=== PATIENT | male | born 1965 | race Caucasian/White ===

== ENCOUNTER 2023-09-05 12:55 | Outpatient (REF) | payer OTHER, SELFPAY ==
--- NOTE | ~2023-09-05 | XR_ITS ---
EXAMINATION: XR LUMBOSACRAL SPINE WITH OBLIQUES CLINICAL INFORMATION: Dorsalgia COMPARISON: None available. TECHNIQUE: AP, both oblique, and lateral views of the lumbar spine. Lateral view of the lumbosacral junction. FINDINGS: Patient is status post posterior fusion at the level of L3-S1 with parallel screws and vertical rods and status post laminectomies. Disc spacers are identified to the level of L3-L4, L4-L5 and L5-S1. The marker of spacers at the level of L4-L5 is mildly anteriorly located and it is not clear, if this position is stable due to inability to compare to the previous studies. There are extensive changes of degenerative spondylosis with multiple marginal bridging osteophytes, more prominent on the right at the level of L1-L2. No evidence of acute fractures or subluxations. Soft tissues are unremarkable. XR/XR lumbar spine 4V min IMPRESSION: Unclear stability of L4-L5 intervertebral disc spacer position, due to inability to compare to the previous images. If previous images well become available, an addendum will follow.
== END 2023-09-05 12:56 | disposition home or self-care (01) ==
LOC: HO.HOSX 12:55
PROVIDERS: PCP Internal Medicine; Visit Provider Physician Assistant
DX: M54.9 Dorsalgia, unspecified (principal); T81.89XA Other complications of procedures, not elsewhere classified, initial encounter; Z98.1 Arthrodesis status; Y75.3 Surgical instruments, materials and neurological devices (including sutures) associated with adverse incidents; Y92.9 Unspecified place or not applicable
CPT/HCPCS: 72110; 99212

== ENCOUNTER 2023-09-05 12:55 | Outpatient (AMB) | payer OTHER, SELFPAY ==
--- NOTE | 2023-09-05 13:01 | HO.SPINEOV ---
Intake Visit Reasons: back pain Intake Note: Mr. Zhu is here today c/o low back pain. Employment Counselor Required: No Allergies No Known Allergies Allergy (Verified 09/05/23 13:04) Assessment & Plan Assessment & Plan (1) Back pain: Code(s): M54.9 - Dorsalgia, unspecified Category: Medical Plan Mr Zhu is a patient known to us from our previous practice [facility]. He underwent a minimally invasive trans Kambin lumbar interbody fusion from L3-S1 in June 2021. He did okay after surgery, he has had back pain on and off but there is a intense left-sided low back pain that has been troubling him for over year. Specifically, any time he coughs, he will feel an intense sharp stabbing pain in the left side of his low back. It is so intense it will leave him shaking and at times incapacitated trial have to go sit down. It is particularly bad at night he is lying on his left side. That is when it is most intense and if he coughs at night it will be a big spasm into his back. It has gotten to the point now where he is only able to sleep on his right side and he is very scared of any kind of coughing. He does not have any pain radiating down the legs. I examined his back today in the area he shows me where he has the pain and discomfort appears to be on the left-sided stab incision on the upper end of the incision. It does radiate down along the length of the stab incision going toward the lower pole but does not go down into his SI joint. His motor examination is normal. I did x-rays on him today and these show no signs of instability. I reviewed a CT scan that was done at [facility] last year for back pain and this shows that he has evidence of fusion at the interbody cages. There does appear to be some halo around the left S1 screw. The Tulip head of the screw abuts right next to the iliac crest. I am wondering if there may be a little bit of movement when he coughs with this Tulip head up against the iliac crest. I would like to run this by Dr. Lombardi and see if he has any other thoughts. I will get back to the patient once I have a chance to review the imaging with Dr. Lombardi. Total amount of time spent in this visit was 20 minutes in discussion of symptoms, CT scan, x-rays imaging results and subsequent plan of care Dharmesh Lombardi MD,PhD [facility] Orders: Orders XR lumbar spine 4V min Today M54.9 - Dorsalgia, unspecified Coding Level of Care Code Est Pt Level 3 (18700) Diagnoses Back pain M54.9
== END 2023-09-05 14:01 | disposition home or self-care (01) ==
LOC: HO.HNS 12:55
PROVIDERS: PCP Internal Medicine; Visit Provider Physician Assistant
DX: M54.9 Dorsalgia, unspecified (principal)
CPT/HCPCS: 99213

== ENCOUNTER 2023-11-04 15:28 | Outpatient (REF) | payer OTHER, SELFPAY | END 2023-11-04 15:29 | disposition home or self-care (01) | LOC: HO.LAB 15:28 | PROVIDERS: PCP Internal Medicine; Visit Provider Neurological Surgery | DX: Z13.89 Encounter for screening for other disorder (principal) ==

== ENCOUNTER → 2023-11-17 06:59 | Day surgery (SDC) | payer OTHER, SELFPAY ==
--- NOTE | 2023-11-03 | ECG_ITS ---
Test Reason : preop Blood Pressure : / mmHG Vent. Rate : 053 BPM Atrial Rate : 053 BPM P-R Int : 152 ms QRS Dur : 086 ms QT Int : 442 ms P-R-T Axes : 057 073 016 degrees QTc Int : 414 ms Sinus bradycardia Septal infarct , age undetermined Abnormal ECG No previous ECGs available Referred By: Janie Carmichael Electronically Signed By:BRADEN POWERS
[2023-11-03 12:28] VITALS: BP 143/89; PULSE 68; RESP 16; O2SAT 97; BMI 22.7
--- NOTE | 2023-11-03 13:03 | P.CONAN_ITS ---
HPI - Anesthesia Eval Consult details Narrative: 57yo M for Removal of Posterior instrumentation (Lumbar L3-S1), 11/17/23 Optimized per PCP eval +Utox with PAT No recent illness Activity only limited by back pain Occassional CP, relieved with time and drinking juice. Difficult for patient to qualify type, location, when... 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 PCP ordered PFT 07/2023 but not done. Also smokes marijuana daily (educated on abstaining preop). GERD: ppi daily ETOH: 2 nips most days, previously more (educated on slow decrease of ETOH intake preop) PMFSH Active Problems Active Problems: All Active Problems Back pain (Acute) Past Medical History Medical History (Updated 11/15/23 @ 09:26 by Kate Marie, PIERO) Alcohol liver damage Alcohol use disorder Dry cough Wears dentures Anxiety History of ETOH abuse Smoker SOB (shortness of breath) Scoliosis GERD (gastroesophageal reflux disease) Surgical History Surgical History (Updated 11/02/23 @ 12:11 by Kate Marie RN) Hx of arthroscopy of right knee Hx of shoulder surgery Hx of hand surgery History of surgery on lower extremity History of foot surgery (~2022) History of lumbar spinal fusion (~06/2021) Social History Social History (Updated 11/03/23 @ 12:55 by Kate Marie, PIERO) Housing Other:: trailer Are you a primary early breastfeeding care specialist to a significant other at home: No Do you presently have visiting nurse or other home services: No Patient Tobacco Use Status: Current everyday Tobacco user Tobacco use type: Cigarette Cigarette Packs Per Day: 1 Cigarettes Per Day: 20.0 Years Smoked: 40 Second Hand Smoke Exposure: No Substance Use Type: Marijuana Meds Allergies Allergy/AdvReac Type Severity Reaction Status Date / Time No Known Allergies Allergy Verified 11/02/23 12:14 Home Medications ?Medication ?Instructions ?Recorded ?Confirmed ?Last Taken ?Type gabapentin 400 mg capsule 400 mg PO TID 11/02/23 11/02/23 Unknown History melatonin 10 mg chewable tablet 10 mg PO BEDTIME 11/02/23 11/02/23 Unknown History pantoprazole 40 mg tablet,delayed 40 mg PO BEDTIME 11/02/23 11/02/23 Unknown History release albuterol sulfate 90 mcg/actuation 2 puff inhalation Q4H PRN Wheezing 11/15/23 11/15/23 Unknown History aerosol inhaler (Ventolin HFA) Exam Height,Weight and Vital Signs: Height 5 ft 7 in Weight 65.771 kg Last Vital Signs Pulse 68 11/03/23 12:28 Resp 16 11/03/23 12:28 BP 143/89 H 11/03/23 12:28 Pulse Ox 97 11/03/23 12:28 O2 Del Method Room Air 11/03/23 12:28 Pertinent Lab Results Pertinent Lab Results: Lab Results 11/03/23 11/03/23 11/04/23 Range/Units 14:00 14:05 15:42 WBC 6.0 (4.8-10.8) X10*3/uL RBC 4.24 L (4.60-5.80) X10*6/uL Hgb 15.6 (14.0-18.0) g/dl Hct 44.5 (42.0-52.0) % MCV 105.0 H (80.0-98.0) fL MCH 36.8 H (27.0-33.0) pg MCHC 35.1 (31.0-36.0) g/dl RDW 12.9 (11.0-16.0) % Plt Count 250 (160-400) X10*3/uL MPV 9.4 (9.4-12.4) fL Absolute Nucleated RBC 0.000 (0.0-0.012) X10*3/uL Nucleated RBC % (auto) 0.0 (0.0-0.2) /100WBC PT 10.7 L (11.1-13.3) SEC INR 0.9 (0.9-1.1) Sodium 143 140 (135-145) mmol/L Potassium 6.0 H* 4.5 D (3.3-5.1) mmol/L Chloride 108 105 (96-108) mmol/L Carbon Dioxide 27 28 (22-29) mmol/L Anion Gap 14 12 (12-20) BUN 12 (9-16) mg/dL Creatinine 0.87 (0.5-1.4) mg/dL Estim Creat Clear Calc 86.0 Estimated GFR > 60 Random Glucose 99 (60-115) mg/dL Calcium 10.3 H (8.4-10.2) mg/dL Total Bilirubin 0.2 (0.0-1.0) mg/dL AST 24 (5-37) U/L ALT 24 (0-40) U/L Alkaline Phosphatase 98 (39-117) U/L Total Protein 7.8 (6.5-8.0) g/dL Albumin 4.5 (3.5-5.0) g/dL Urine Opiates Screen Not Detected (Not Detect) Ur Buprenorphine Scrn Not Detected (Not Detect) ng/mL Ur Oxycodone Screen Not Detected (Not Detect) ng/mL Urine Methadone Screen Not Detected (Not Detect) ng/mL Urine Fentanyl Screen Not Detected (Not Detect) Ur Barbiturates Screen Not Detected (Not Detect) Ur Phencyclidine Scrn Not Detected (Not Detect) Ur Amphetamines Screen Not Detected (Not Detect) U Benzodiazepines Scrn Not Detected (Not Detect) Urine Cocaine Screen POSITIVE H (Not Detect) U Marijuana (THC) Screen POSITIVE H (Not Detect) Narrative Narrative: EKG 10/2023 Vent. Rate : 053 BPM Atrial Rate : 053 BPM P-R Int : 152 ms QRS Dur : 086 ms QT Int : 442 ms P-R-T Axes : 057 073 016 degrees QTc Int : 414 ms Sinus bradycardia Septal infarct , age undetermined Abnormal ECG No previous ECGs available Airway Mallampati Class: III TM Dist: >3cm Neck ROM: Full Denture: Upper Loose/Missing/Broken Teeth: Yes (No lower teeth) Heart: RRR Lungs: clear, dim bases Assessment and Plan Assessment Anesthesia Assessment: Anesthesia Plan Discussed, Smoking Cess. Discussed and PAT Visit
[2023-11-03 14:55] LABS: Hematocrit 44.5 % (42.0-52.0); Hemoglobin 15.6 g/dl (14.0-18.0); Mean Corpuscular HGB Conc 35.1 g/dl (31.0-36.0); Mean Corpuscular Hemoglobin 36.8 pg (27.0-33.0); Mean Platelet Volume 9.4 fL (9.4-12.4); Platelet Count 250 X10*3/uL (160-400); Red Blood Count 4.24 X10*6/uL (4.60-5.80); Red Cell Distribution Width 12.9 % (11.0-16.0)
[2023-11-03 15:00] LABS: INTERNATIONAL NORM RATIO 0.9 (0.9-1.1); Prothrombin Time 10.7 SEC (11.1-13.3)
[2023-11-03 15:05] LABS: Amphetamine Screen Urine Not Detected (Not Detect); Barbiturates, Urine Not Detected (Not Detect); Benzodiazepines Screen Urine Not Detected (Not Detect); Buprenorphine Scr Not Detected (Not Detect); Cannabinoid Screen Urine POSITIVE (Not Detect); Cocaine Screen Urine POSITIVE (Not Detect); Fentanyl, urine Not Detected (Not Detect); Methadone Screen, Urine Not Detected (Not Detect); Opiate Screen Urine Not Detected (Not Detect); Oxycodone Screen Urine Not Detected (Not Detect); Phencyclidine Screen Urine Not Detected (Not Detect)
[2023-11-03 16:03] LABS: Alanine Aminotransferase 24 U/L (0-40); Albumin Level 4.5 g/dL (3.5-5.0); Alkaline Phosphatase 98 U/L (39-117); Anion Gap 14 (12-20); Aspartate Amino Transferase 24 U/L (5-37); Bilirubin Total 0.2 mg/dL (0.0-1.0); Blood Urea Nitrogen 12 mg/dL (9-16); Calcium 10.3 mg/dL (8.4-10.2); Carbon Dioxide 27 mmol/L (22-29); Chloride 108 mmol/L (96-108); Estimated Glomerular Filt Rate > 60; Glucose Random 99 mg/dL (60-115); Sodium 143 mmol/L (135-145); Total Protein 7.8 g/dL (6.5-8.0)
[2023-11-04 16:20] LABS: Anion Gap 12 (12-20); Carbon Dioxide 28 mmol/L (22-29); Chloride 105 mmol/L (96-108); Potassium 4.5 mmol/L (3.3-5.1); Sodium 140 mmol/L (135-145)
--- NOTE | ~2023-11-17 | XR_ITS ---
EXAMINATION: XR CHEST CLINICAL INFORMATION: Smoker. COMPARISON: Chest radiograph report dated 12/29/2012. TECHNIQUE: 2 views of the chest were obtained. FINDINGS: The heart is normal in size. The lungs appear hyperinflated with flattening of the diaphragm and increased size of the retrosternal airspace, consistent with chronic obstructive pulmonary disease. There is no consolidation within either lung. The pleural spaces are clear. No pneumothorax. There are at least 5 chronic appearing right rib fractures and at least one chronic appearing left rib fracture. This fracture is new when compared with the prior chest radiograph. There is deformity of the right clavicle with 2 screws overlying the mid aspect of this bone. There are degenerative changes of the spine. XR/XR chest 2V IMPRESSION: There is no consolidation within either lung. Findings consistent with chronic obstructive pulmonary disease. Chronic bilateral rib fractures.
--- OUTSIDE RECORDS SUMMARY | 2023-11-17 07:01 | XMS_ITS | Continuity of Care Document ---
Author Organization [facility] ter Address [address] [place] [id number]- Care Team Providers Care Funeral Pre Arrangement Specialist Name Role Phone Not on Staff, PCP Primary Care Physician Unavail able Encounter [facility] [place] Date(s): 05/05/21 - 07/09/[address] [address]- Attending Physician: Fahad Cervantes MD Admitting Physician: Fahad Cervantes MD Allergies, Adverse Reactions, Alerts No Known Allergies Medications aspirin 325 mg oral delayed release tablet 325 mg, 1, tablet, By Mouth, Daily, # 14 tablet, Refills 0, Tot. Refills 0, Maintenance, 08/06/20 12:32:00 EDT, Route to Pharmacy Electronically, [facility], Partial fill upon patient request if the prescription is for a schedule II opio... Start Date: 08/06/20 Stop Date: 08/20/20 Status: Ordered folic acid 1 mg oral tablet 1 mg, 1, tablet, By Mouth, Daily, Refills 0, Maintenance, 08/06/20 12:32:00 EDT, Partial fill upon patient request if the prescription is for a schedule II opioid drug. Start Date: 08/06/20 Status: Ordered Multivitamin Tablet 1 tablet, By Mouth, Daily, 0 Refills, Maintenance, 08/06/20 12:32:00 EDT, Tablet, Partial fill uponpatient request if the prescription is for a schedule II opioid drug. Start Date: 08/06/20 Status: Ordered Neurontin 300 mg oral capsule 1 capsule = 300 mg, By Mouth, 2 times a day, Take 1 capsule before bedtime every evening for 1 week, then increase to 1 capsule twice daily., # 60 capsule, 0 Refills, Maintenance, 05/28/13 11:33:34, Capsule, 1 capsule By Mouth 2 times a day,Instr:Take... Start Date: 05/28/13 Status: Ordered Nicoderm C-Q Clear 14 mg/24 hr transdermal film, extended release 1 patch, Topically, Daily, # 30 patch, 0 Refills, Maintenance, 05/15/13 10:45:08, Patch Start Date: 05/15/13 Status: Ordered pantoprazole 40 mg oral delayed release tablet 1 tablet = 40 mg, By Mouth, Daily, # 30 tablet, 0 Refills, Maintenance, 08/05/20 9:41:00 EDT, EC Tablet Start Date: 08/05/20 Status: Ordered thiamine 100 mg oral tablet 100 mg, 1, tablet, By Mouth, 2 times a day, Refills 0, Maintenance, 08/06/20 12:33:00 EDT, Partial fill upon patient request if the prescription is for a schedule II opioid drug. 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
--- OUTSIDE RECORDS SUMMARY | 2023-11-17 07:01 | XMS_ITS | Continuity of Care Document ---
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(Discharge Diagnosis) - 11/29/21 Post-traumatic arthritis of left ankle(Discharge Diagnosis) - 11/29/21 Painful orthopaedic hardware(Discharge Diagnosis) - 11/29/21 Discharge Disposition: A-Transfer VNA/Home Health Attending Physician: Fahad Cervantes MD Admitting Physician: Fahad Cervantes MD Referring Physician: Fahad Cervantes MD Allergies, Adverse Reactions, Alerts No Known Allergies Immunizations Given and Recorded Vaccine Date Status Refusal Reason SARS-CoV-2 (COVID-19) mRNA-1273 vaccine 12/11/20 R ecorded SARS-CoV-2 (COVID-19) mRNA-1273 vaccine 10/30/20 R ecorded Medications acetaminophen 325 mg oral tablet 650 mg, By Mouth, Every 6 hours, # 60 tablet, Refills 0, Tot. Refills 0, Acute 12/06/21 10:56:00 EDT, 11/29/21 10:56:00 EDT, Route to Pharmacy Electronically, [facility], Partial fill upon patient request if the prescription is for a enrico... Start Date: 11/29/21 Stop Date: 12/06/21 Status: Ordered Acetaminophen Tablet 650 mg, Tablet, By Mouth, 11/29/21 9:00:00 EDT Start Date: 11/29/21 Stop Date: 11/29/21 Status: Completed aspirin 325 mg oral delayed release tablet 325 mg, 1, tablet, By Mouth, Daily, # 30 tablet, Refills 0, Tot. Refills 0, Maintenance, 11/29/21 10:57:00 EDT, Route to Pharmacy Electronically, [facility], Partial fill upon patient request if the prescription is for a schedule II opio... Start Date: 11/29/21 Status: Ordered Bactrim DS 800 mg-160 mg oral tablet 1 tablet, By Mouth, 2 times a day, for 10 days, # 20 tablet, 0 Refills, Acute 12/09/21 10:57:00 EDT, 11/29/21 10:57:00 EDT, Tablet, [facility], Partial fill upon patient request if the prescription is for a schedule II opioid drug., 1 ta... Start Date: 11/29/21 Stop Date: 12/09/21 Status: Ordered Dilaudid 2 mg oral tablet 4 mg, Tablet, By Mouth, Every 4 hours, PRN for Pain , Moderate, Routine, 11/26/21 8:12:00 EDT Start Date: 11/26/21 Stop Date: 11/29/21 Status: Discontinued Dilaudid 4 mg oral tablet 1 tablet = 4 mg, By Mouth, Every 4 hours, PRN as needed for pain, # 42 tablet, 0 Refills, Acute 12/06/21 10:57:00 EDT, 11/29/21 10:57:00 EDT, Tablet, [facility], Partial fill upon patient request if the prescription is for a schedule II... Start Date: 11/29/21 Stop Date: 12/06/21 Status: Ordered docusate-senna 50 mg-8.6 mg oral capsule 1 capsule, By Mouth, 2 times a day, for 14 days, # 28 capsule, 0 Refills, Acute 12/13/21 10:56:00 EDT, 11/29/21 10:56:00 EDT, Capsule, [facility], Partial fill upon patient request if the prescription is for a schedule II opioid drug., 1... Start Date: 11/29/21 Stop Date: 12/13/21 Status: Ordered Neurontin 300 mg oral capsule 300 mg, Capsule, By Mouth, 11/29/21 9:00:00 EDT Start Date: 11/29/21 Stop Date: 11/29/21 Status: Completed Neurontin 300 mg oral capsule 1 capsule = 300 mg, By Mouth, 2 times a day, Take 1 capsule before bedtime every evening for 1 week, then increase to 1 capsule twice daily., # 60 capsule, 0 Refills, Maintenance, 05/28/13 11:33:34, Capsule, 1 capsule By Mouth 2 times a day,Instr:Take... 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 Discharge Diagnosis 11/29/21 Non-Specified Post-traumatic arthritis of left ankle Discharge Diagnosis 11/29/21 Non-Specified Painful orthopaedic hardware Discharge Diagnosis 11/29/21 Non-Specified Results Orders for Microbiology Reports Name Date Anaerobic Culture (ANAEROBIC CULTURE) 11/25/21 Tissue Culture w/ Gram Smear (TISSUE/BIO PSY CULT.) 11/25/21 Microbiology Reports TEST:Anaerobic Culture STATUS:Auth (Verified) BODY SITE: SOURCE:[email or web address] COLLECTED DATE/TIME:11/25/21 12:07 PM Anaerobic Culture SPECIMEN DESCRIPTION : TISSUE LEFT ANKLE TISSUE SPECIAL REQUESTS : NONE CULTURE : NO ANAEROBES ISOLATED REPORT STATUS : FINAL 11/27/2021 TEST:Tissue/Biopsy Culture STATUS:Auth (Verified) BODY SITE: SOURCE:[email or web address] COLLECTED DATE/TIME:11/25/21 12:07 PM Tissue/Biopsy Culture SPECIMEN DESCRIPTION : TISSUE LEFT ANKLE TISSUE SPECIAL REQUESTS : NONE GRAM STAIN : 1+ WHITE BLOOD CELLS 1+ GRAM POSITIVE COCCI CRITICAL VALUE CALLED AND VERIFIED BY READBACK FOR: RESULTS CALLED TO TOMER [id number] ON 11/26/21 0053 BY TECH [id number] CULTURE : 4+ STAPHYLOCOCCUS EPIDERMIDIS This isolate was identified using Maldi-TOF system These AST results were performed on the Microscan ID and AST system REPORT STATUS : FINAL 11/29/2021 ORGANISM 4+ STAPHYLOCOCCUS EPIDERMIDIS This isolate was identified using Maldi-TOF system These AST results were performed on the Microscan ID and AST system METHOD MIN. INHIB. CONC. (MCG/ML) CIPROFLOXACIN SUSCEPTIBLE ERYTHROMYCIN SUSCEPTIBLE LEVOFLOXACIN SUSCEPTIBLE RIFAMPIN SUSCEPTIBLE RIFAMPIN RIFAMPIN SHOULD NOT BE USED ALONE FOR ANTIMICROBIAL RIFAMPIN THERAPY. TRIMETH/SULFAMETHOX SUSCEPTIBLE VANCOMYCIN SUSCEPTIBLE Radiology Reports * Exam Date Time Procedure Performing Provider Status 11/25/21 3:05 PM C-Arm > 1 Hour Wendi Church; Auth (Verified) Notes: (C-Arm > 1 Hour) Reason For Exam: arthritis non union hardware removal RESULT: C-Arm > 1 Hour Ankle Min 3 Views Left, C-Arm > 1 Hour Reason: arthritis non union hardware removal; Special Instructions: [id number] 2min.39.1secft 8.04mGy COMPARISON: 08/05/2020 FINDINGS: 8 fluoroscopic spot images submitted during hardware removal and tibiotalar and subtalar fusion. IMPRESSION: See above WSN: [id number] Ordering Physician: Fahad Cervantes Dictated By: Dharmesh Lam MD Dictated Date/Time: 11/25/21 3:09 pm Reviewed By: Dharmesh Lam MD Signed By: Dharmesh Lam MD Signed Date/Time: 11/25/21 3:09 pm Transcribed By: ARUN Transcribed Date/Time: 11/25/21 3:08 pm * Exam Date Time Procedure Performing Provider Status 11/25/21 3:05 PM Ankle Min 3 Views Left Wendi Church; Auth (Verified) Notes: (Ankle Min 3 Views Left) Reason For Exam: arthritis non union hardware removal RESULT: Ankle Min 3 Views Left Ankle Min 3 Views Left, C-Arm > 1 Hour Reason: arthritis non union hardware removal; Special Instructions: [id number] 2min.39.1secft 8.04mGy COMPARISON: 08/05/2020 FINDINGS: 8 fluoroscopic spot images submitted during hardware removal and tibiotalar and subtalar fusion. IMPRESSION: See above WSN: [id number] Ordering Physician: Fahad Cervantes Dictated By: Dharmesh Lam MD Dictated Date/Time: 11/25/21 3:09 pm Reviewed By: Dharmesh Lam MD Signed By: Dharmesh Lam MD Signed Date/Time: 11/25/21 3:09 pm Transcribed By: ARUN Transcribed Date/Time: 11/25/21 3:08 pm Vital Signs Most recent to oldest [Reference Range]: 1 2 3 Height 175 cm (11/25/21 8:20 AM) 175 cm (11/24/21 1:23 PM) Weight 63.3 kg (11/25/21 8:20 AM) 66 kg (11/24/21:23 PM) Oxygen Saturation [94-100 %] 95 % (11/29/21 7:00 AM) 98 % (11/29/21 3:00 AM) 98 % (11/28/21 11:00 PM) Pulse Rate [55-90 bpm] 76 bpm (11/29/21 7:00 AM) 70 bpm (11/29/21 3:00 AM) 72 bpm (11/28/21 11:00 PM) Body Mass Index [18.5-24.99] 20.67 (11/25/21 8:20 AM) 21.55 (11/24/21 1:23 PM) Blood Pressure [90-138/55-84 mm Hg] 126/67mm Hg (11/29/21 7:00 AM) 105/56mm Hg (11/29/21 3:00 AM) 113/59mm Hg (11/28/21 11:00 PM) Respiratory Rate [16-30 br/min] 18 br/min (11/29/21 11:53 AM) 18 br/min (11/29/21 9:03 AM) 18 br/min (11/29/21 9:03 AM) Temperature [96.8-100.4 DegF] 98.4 DegF (11/29/21 7:00 AM) 98.5 DegF (11/29/21 3:00 AM) 98.2 DegF (11/28/21 11:00 PM) Liters per Minute 2 L/min (11/25/21 5:30 PM) 2 L/min (11/25/21 5:15 PM) 2 L/min (11/25/21 5:00 PM) Mode of Delivery (Oxygen) Room air (11/29/21 7:00 AM) Room air (11/29/21 3:00 AM) Room air (11/28/21 11:00 PM) Blood pressure sites Arm, right (11/29/21 7:00 AM) Arm, right (11/29/21 3:00 AM) Arm, right (11/28/21 11:00 PM) Temperature Route Oral (11/29/21 7:00 AM) Oral (11/29/21 3:00 AM) Oral (11/28/21 11:00 PM) Dry Weight 66 kg (11/24/21 1:23 PM) Weight Obtained Via Patient/family state d (11/24/21 1:23 PM) Dry Weight Obtained Via Patient/family s tated (11/24/21 1:23 PM) Note * KYLE Vee S: Dharmesh Welsh MD: VERIFY Event Display: Result: Authored Date: [id number] Ankle Min 3 Views Left, C-Arm > 1 Hour Reason: arthritis non union hardware removal; Special Instructions: [id number] 2min.39.1secft 8.04mGy COMPARISON: 08/05/2020 FINDINGS: 8 fluoroscopic spot images submitted during hardware removal and tibiotalar and subtalar fusion. IMPRESSION: See above WSN: [id number] Ordering Physician: Fahad Cervantes Dictated By: Dharmesh Lam MD Dictated Date/Time: 11/25/21 3:09 pm Reviewed By: Dharmesh Lam MD Signed By: Dharmesh Lam MD Signed Date/Time: 11/25/21 3:09 pm Transcribed By: ARUN Transcribed Date/Time: 11/25/21 3:08 pm XR Ankle - left GE 3 Views * KYLE Vee S: Dharmesh Welsh MD: VERIFY Event Display: Result: Authored Date: [id number] Ankle Min 3 Views Left, C-Arm > 1 Hour Reason: arthritis non union hardware removal; Special Instructions: [id number] 2min.39.1secft 8.04mGy COMPARISON: 08/05/2020 FINDINGS: 8 fluoroscopic spot images submitted during hardware removal and tibiotalar and subtalar fusion. IMPRESSION: See above WSN: [id number] Ordering Physician: Fahad Cervantes Dictated By: Dharmesh Lam MD Dictated Date/Time: 11/25/21 3:09 pm Reviewed By: Dharmesh Lam MD Signed By: Dharmesh Lam MD Signed Date/Time: 11/25/21 3:09 pm Transcribed By: ARUN Transcribed Date/Time: 11/25/21 3:08 pm Care Team Personnel Name: Not on Staff, PCP
--- OUTSIDE RECORDS SUMMARY | 2023-11-17 07:01 | XMS_ITS | Continuity of Care Document ---
Author Organization [facility] ter Address [address] [place] [id number]- Care Team Providers Care Silver Spray Worker Name Role Phone Not on Staff, PCP Primary Care Physician Unavail able Encounter [facility] Date(s): 06/17/21 - 09/02/[address] [address]- Attending Physician: Fahad Cervantes MD Admitting Physician: Fahad Cervantes MD Allergies, Adverse Reactions, Alerts No Known Allergies Medications aspirin 325 mg oral delayed release tablet 325 mg, 1, tablet, By Mouth, Daily, # 14 tablet, Refills 0, Tot. Refills 0, Maintenance, 08/06/20 12:32:00 EDT, Route to Pharmacy Electronically, [facility], Partial fill upon patient request [...]
--- OUTSIDE RECORDS SUMMARY | 2023-11-17 07:01 | XMS_ITS | Continuity of Care Document ---
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 Name Role Phone Not on Staff, PCP Primary Care Physician Unavail able Encounter [facility] Date(s): 08/04/20 - 08/06/[address] [id number] Encounter Diagnosis Closed left trimalleolar fracture(Discharge Diagnosis) - 08/06/20 Discharge Disposition: A-D/C Home Attending Physician: Fahad Cervantes MD Admitting Physician: Tasha Melgar MD Referring Physician: Not on Staff, Referring MD Allergies, Adverse Reactions, Alerts Substance Reaction Severity Status NKA Active Medications acetaminophen 325 mg oral tablet 650 mg, By Mouth, Every 6 hours, # 100 tablet, Refills 0, Tot. Refills 0, Acute 08/20/20 12:32:00 EDT, 08/06/20 12:32:00 EDT, Route to Pharmacy Electronically, [facility], Partial fill upon patient request if the prescription is for a sc... Start Date: 08/06/20 Stop Date: 08/20/20 Status: Ordered aspirin 325 mg oral delayed release tablet 325 mg, 1, tablet, By Mouth, Daily, # 14 tablet, Refills 0, Tot. Refills 0, Maintenance, 08/06/20 12:32:00 EDT, Route to Pharmacy Electronically, [facility], Partial fill upon patient request [...] oral capsule 300 mg, Capsule, By Mouth, 08/06/20 9:00:00 EDT Start Date: 08/06/20 Stop Date: 08/06/20 Status: Completed Neurontin 300 mg oral capsule [...] 10:45:08, Patch Start Date: 05/15/13 Status: Ordered oxyCODONE 5 mg oral tablet See Instructions, PRN, 1/2-1 tablet By Mouth Every 4-6 hours as needed for moderate to severe pain,# 30 tablet, Refills 0, Tot. Refills 0, Acute 08/13/20 12:33:00 EDT, Pain , Moderate, 08/06/20 12:32:00 EDT, Instructions Replace Required Details, Rou... Start Date: 08/06/20 Stop Date: 08/13/20 Status: Ordered OxyCODONE IR Tablet 5 mg, Tablet, By Mouth, Every 3 hours, PRN for Pain , Moderate, Routine, 08/05/20 20:09:00 EDT Start Date: 08/05/20 Stop Date: 08/06/20 Status: Discontinued pantoprazole 40 mg oral delayed release tablet [...] Dates Health Status Clinical Service Informant Closed left trimalleolar fracture Discharge Diagnosis 08/06/20 Non-Specified Results Radiology Reports * Exam Date Time Procedure Performing Provider Status 08/05/20 6:44 PM C-Arm > 1 Hour Andrez Mariscal; Auth ( Verified) Notes: (C-Arm > 1 Hour) Reason For Exam: left ankle fracture RESULT: C-Arm > 1 Hour Ankle 2 Views Left, C-Arm > 1 Hour Reason: left ankle fracture; Special Instructions: TT 1hr 50min, FT 33sec. COMPARISON: Left ankle radiograph dated 08/04/2020. FINDINGS: 3 intraoperative spot film radiographs available for review which demonstrate placement of lateral plate and locking screws transfixing comminuted intra- articular fracture of the posterior and medialmalleolus as well as minimally displaced spiral fracture of the distal fibula, with near-anatomic alignment of the fracture fragments. IMPRESSION: Intraoperative spot film radiographs demonstrating open reduction internal fixation of displaced and impacted comminuted intra-articular fractures of the medial malleolus and distal fibula. WSN: [id number] Ordering Physician: Fahad Cervantes Dictated By: Caroline Casas MD Dictated Date/Time: 08/05/20 8:14 pm Reviewed By: Caroline Casas MD Signed By: Caroline Casas MD Signed Date/Time: 08/05/20 8:14 pm Transcribed By: ARUN Transcribed Date/Time: 08/05/20 8:13 pm * Exam Date Time Procedure Performing Provider Status 08/05/20 6:44 PM Ankle 2 Views Left Andrez Mariscal; Au th (Verified) Notes: (Ankle 2 Views Left) Reason For Exam: left ankle fracture RESULT: Ankle 2 Views Left Ankle 2 Views Left, C-Arm > 1 Hour Reason: left ankle fracture; Special Instructions: TT 1hr 50min, FT 33sec. COMPARISON: Left ankle radiograph dated 08/04/2020. FINDINGS: 3 intraoperative spot film radiographs available for review which demonstrate placement of lateral plate and locking screws transfixing comminuted intra- articular fracture of the posterior and medialmalleolus as well as minimally displaced spiral fracture of the distal fibula, with near-anatomic alignment of the fracture fragments. IMPRESSION: Intraoperative spot film radiographs demonstrating open reduction internal fixation of displaced and impacted comminuted intra-articular fractures of the medial malleolus and distal fibula. WSN: [id number] Ordering Physician: Fahda Cervantes Dictated By: Caroline Casas MD Dictated Date/Time: 08/05/20 8:14 pm Reviewed By: Caroline Casas MD Signed By: Caroilne Casas MD Signed Date/Time: 08/05/20 8:14 pm Transcribed By: ARUN Transcribed Date/Time: 08/05/20 8:13 pm * Exam Date Time Procedure Performing Provider Status 08/04/20 6:51 PM Ankle Min 3 Views Left Luther, Denilson; Auth (Verified) Notes: (Ankle Min 3 Views Left) Reason For Exam: with Pain;Trauma RESULT: Ankle Min 3 Views Left Ankle Min 3 Views Left Reason: Trauma; with Pain; Clinical Question(s): Fracture. COMPARISON: None. FINDINGS: Spiral fracture distal fibular metadiaphysis with approximately 4 mm of medial displacement. Comminuted intra-articular fracture of the posterior and likely the medial malleolus. Articular step-off centrally of the tibial plafond approximately 3 mm of articular step-off. Chronic appearing collapse of the talar dome and possibly fusion of the posterior subtalar joint. IMPRESSION: Displaced and impacted comminuted intra-articular fracture of the posterior and likely the medial malleolus. Minimally displaced spiral fracture of the distal fibula. Chronic appearing collapse of the talar dome and possible fusion of the posterior subtalar joint. WSN: [id number] Ordering Physician: Daria Roberts Dictated By: Justin Phillips MD Dictated Date/Time: 08/04/20 7:28 pm Reviewed By: Justin Phillips MD Signed By: Justin Phillips MD Signed Date/Time: 08/04/20 7:28 pm Transcribed By: ARUN Transcribed Date/Time: 08/04/20 7:16 pm Vital Signs Most recent to oldest [Reference Range]: 1 2 3 Height 179 cm (08/06/20 11:36 AM) 179 cm (08/06/20 7:04 AM) 179 cm (08/06/20 4:10 AM) Weight 66 kg (08/05/20 2:30 PM) 66 kg (08/05/20 11:55 AM) 66 kg (08/05/20 7:47 AM) Oxygen Saturation [94-100 %] 97 % (08/06/20 11:36 AM) 98 % (08/06/20 7:04 AM) 95 % (08/06/20 4:10 AM) Pulse Rate [55-90 bpm] 81 bpm (08/06/20 11:36 AM) 90 bpm (08/06/20 7:04 AM) 91 bpm *H* (08/06/20 4:10 AM) Body Mass Index [18.5-24.99] 20.6 (08/05/20 2:30 PM) 20.6 (08/05/20 11:55 AM) 20.6 (08/05/20 7:47 AM) Blood Pressure [90-138/55-84 mm Hg] 120/65mm Hg (08/06/20 11:36 AM) 126/85mm Hg (08/06/20 7:04 AM) 121/76mm Hg (08/06/20 4:10 AM) Respiratory Rate [16-30 br/min] 18 br/min (08/06/20 11:36 AM) 18 br/min (08/06/20 11:05 AM) 20 br/min (08/06/20 8:52 AM) Temperature [96.8-100.4 DegF] 98.3 DegF (08/06/20 11:36 AM) 98.7 DegF (08/06/20 7:04 AM) 98.4 DegF (08/06/20 4:10 AM) Liters per Minute 2 L/min (08/05/20 8:00 PM) 2 L/min (08/05/20 8:00 PM) 2 L/min (08/05/20 7:45 PM) Mode of Delivery (Oxygen) Room air (08/06/20 11:36 AM) Room air (08/06/20 7:04 AM) Room air (08/06/20 4:10 AM) Blood pressure sites Arm, left (08/06/20 11:36 AM) Arm, left (08/06/20 7:04 AM) Arm, right (08/05/20 9:00 PM) Temperature Route Oral (08/06/20 11:36 AM) Oral (08/06/20 7:04 AM) Oral (08/06/20 4:10 AM) Dry Weight 66 kg (08/05/20 11:55 AM) 66 kg (08/05/20 7:47 AM) 66 kg (08/05/20 5:38 AM)
--- NOTE | 2023-11-17 07:06 | P.DS_ITS ---
DS: Providers Provider Date of Service: 11/17/23 Date of discharge: 11/17/23 Primary care physician: Janny Kitchen MD Admitting clinician: Narinder Lombardi DS: Diagnosis Discharge Diagnosis (1) Back pain: Status: Acute DS: Summary Time Attestation Discharge Coordination Time (in mins): 4 Quality: Safe Use of Opioids Does Pt have an Active Cancer Diagnosis on the Problem List?: No Quality: Stroke Does the patient have a stroke diagnosis?: No Physical Exam Vital Signs: Vital Signs: Last Vital Signs Pulse 68 11/03/23 12:28 Resp 16 11/03/23 12:28 BP 143/89 H 11/03/23 12:28 Pulse Ox 97 11/03/23 12:28 O2 Del Method Room Air 11/03/23 12:28 BMI result Body Mass Index 22.7 Discharge Plan Discharge Patient Disposition: Home, Self-Care Referrals: Janny Kitchen MD [Primary Care Provider] - 1 Week Discharge Medications: Continued gabapentin 400 mg capsule 400 mg PO TID Patient Comments: sometimes takes 1200 mg at bedtime pantoprazole 40 mg tablet,delayed release (DR/EC) 40 mg PO BEDTIME melatonin 10 mg Tablet,Chewable 10 mg PO BEDTIME albuterol sulfate [Ventolin HFA] 90 mcg/actuation Hfa Aerosol Inhaler 2 puff INHALATION Q4H PRN (Reason: Wheezing) Diet: Advance to usual diet Activity on Discharge: As tolerated Activity Restrictions/Additional Instructions: After your spinal surgery we ask you to observe the following restrictions/guidelines: Activity: It is normal to feel some discomfort as you increase your activity, but that will improve with time. We ask you avoid heavy lifting or acitivities that cause pain. As a general rule, 8lbs is a safe limit for lifting right after surgery. Walk as much as you feel comfortable but not to exhaustion. You will feel extra tired the first few days after surgery. Stay well hydrated. It is OK to walk up and down stairs You may return to driving when you are off narcotics (such as vicodin, oxycodone, dilaudid, etc), and you are back to normal functional capacity. If you have any concerns please check with office before driving. Return to work is specific to each patient and each surgery, so please speak with your doctor/PA at first follow up. Please bring paperwork such as FMLA at that time if you need it filled out. Medications: For optimum pain control, it is best to start with a combination of 500 mg of Tylenol every 4 hours with 600 mg of Motrin every 8 hours, and use narcotics as needed in between for breakthrough pain. We will give you a short supply of narcotics after surgery (usually one weeks worth). If you need more please call the office but do not use more than prescribed. You will need to give our office 48 hours notice if you need narcotics refilled and we do not fill narcotics on weekends or evenings. If you are on a narcotic, it is a good idea to take a stool softener such as colace or senna to avoid constipation If you take blood thinner such as aspirin, Plavix, Coumadin, Effient, Eliquis etc for conditions such as Afib, DVT, Pulmonary embolus, coronary disease, stents etc please speak with your surgeon about specific details as to when you can resume these medications. You can resume NSAIDs on post op day 1 (eg: Motrin, Naproxen, etc). Follow up: Please call the office, , after surgery to arrange a 3 week follow up for wound check. Wound Care: You may remove your dressing on the first day after surgery. ?You may ?leave open to air. Please do not remove the steri strips underneath. they will fall off on their own in one week. IT IS NORMAL FOR THE WOUND TO OOZE OR BE BLOODY FOR A FEW DAYS AFTER SURGERY. ?IF THIS HAPPENS JUST PLACE NEW DRESSING OVER IT TO AVOID STAINING CLOTHES. You may shower on post op day # 1 We ask that you do not let the water soak the wound. If it does get wet, just towel dry lightly. Please do not scrub your incision or place any type of chemical/ointment on the wound. No tub baths, pools or jacuzzis for one month. If you have any leaking or redness from your wound, or fevers, please call office Print Language: Hebrew
--- NOTE | 2023-11-17 07:28 | MHC.SHP ---
Pre-Procedural Eval Section A - 24 Hr Update-Section A only Date of Service: 11/17/23 Section B - Complete if H&P > 30 days Chief Complaint: Dorsalgia, unspecified Details of Present Illness: Painful hardware Allergies: Allergies Allergy/AdvReac Type Severity Reaction Status Date / Time No Known Allergies Allergy Verified 11/02/23 12:14 Review of Systems Sugical H&P ROS: Negative: Constitution, Cardiovascular, Respiratory, Neurological, Psychiatric, Hem-Onc, Allergic/Immunologic, Gastrointestinal, Genitourinary, Musculoskeletal, Integumentary, Endocrine and Eyes/Ears/Nose/Throat Exam Surgical H&P Exam: Normal: HEENT, Normal: Heart, Normal: Lungs, Normal: Extremities, Normal: Abdomen, Normal: Skin and Normal: Neurological (Awake, alert) Plan Diagnosis/Plan: Unchanged I have reviewed the history and physical and performed a pertinent physical examination on my patient. No changes have occurred unless specified. Removal of lumbar pedicle screws, left side Time Spent With Patient Time: Total time managing care of this patient today _5__ minutes.
[2023-11-17 07:34] VITALS: BMI 22.1
[2023-11-17 07:48] VITALS: BP 131/83; PULSE 69; RESP 16; TEMP 36.3; O2SAT 95
[2023-11-17 07:49] LABS: Amphetamine Screen Urine Not Detected (Not Detect); Barbiturates, Urine Not Detected (Not Detect); Benzodiazepines Screen Urine Not Detected (Not Detect); Buprenorphine Scr Not Detected (Not Detect); Cannabinoid Screen Urine POSITIVE (Not Detect); Cocaine Screen Urine POSITIVE (Not Detect); Fentanyl, urine Not Detected (Not Detect); Methadone Screen, Urine Not Detected (Not Detect); Opiate Screen Urine Not Detected (Not Detect); Oxycodone Screen Urine Not Detected (Not Detect); Phencyclidine Screen Urine Not Detected (Not Detect)
--- NOTE | 2023-11-17 08:10 | PC.NURSE ---
patient is cancelled by anesthesia. aware of plan of care. positive cocaine.
== END | disposition home or self-care (01) ==
PROVIDERS: Nurse Practitioner; PCP Internal Medicine; Visit Provider Neurological Surgery
DX: M54.9 Dorsalgia, unspecified (principal); Z53.09 Procedure and treatment not carried out because of other contraindication; R82.5 Elevated urine levels of drugs, medicaments and biological substances
CPT/HCPCS: 36415; 71046; 80051; 80053; 80307; 85027; 85610; 93005; J0131; J0690

== ENCOUNTER → 2023-11-17 06:59 | Outpatient (BNV) | payer OTHER, SELFPAY | PROVIDERS: PCP Internal Medicine; Visit Provider Physician Assistant | DX: M54.9 Dorsalgia, unspecified (principal) | CPT/HCPCS: 99499 ==

== ENCOUNTER 2024-07-06 14:34 | Outpatient (AMB) | payer OTHER, SELFPAY ==
--- OUTSIDE RECORDS SUMMARY | 2024-07-06 14:49 | XMS_ITS | Clinical Summary ---
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 0 10/26/2019 Active sertraline (ZOLOFT) 25 MG tablet Take 25 mg by mouth daily. 0 11/05/2019 Active traZODone (DESYREL) 50 MG tablet Take 50 mg by mouth every night at bedtime. 0 12/03/2019 Active Diclofenac Sodium 1 % GEL Apply 4g to affected area on left hip and right back up to 4 times daily as needed for pain 0 02/01/2020 Active naproxen (NAPROSYN) 500 MG tablet TAKE 1 TABLET BY MOUTH TWICE DAILY WITH MEALS 0 04/01/2020 Active pantoprazole (PROTONIX) 40 MG tablet TAKE 1 TAB BY MOUTH DAILY. TAKE IN AM ON EMPTY STOMACH, WAIT 30 MIN THEN EAT TO ACTIVATE THE MED 0 04/25/2020 Active ciclopirox 0.77 % gel Apply 1 Dose topically 2 (two) times a day. 0 Active gabapentin (NEURONTIN) 400 MG capsule Take 1 capsule (400 mg total) by mouth 3 (three) times a day. 90 capsule 0 12/23/2023 Active Active Problems Problem Noted Date Diagnosed Date Elevated ferritin 04/22/2020 Overview: Overview: 04/13/2020: Seen by Dr. Shepherd. ? 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 01/30/2020 Current mild episode of major depressive disorde r 05/30/2018 Insomnia 05/30/2018 Alcohol abuse 05/29/2015 Gastroesophageal reflux disease without esophagi tis 05/29/2015 Tobacco use disorder 05/29/2015 [facility] proc-closed 04/24/2010 Immunizations Name Administration Dates Next Due Tdap 04/06/2019,05/21/2010 Social History Tobacco Use Types Packs/Day Years Used Date Smoking Tobacco: Every Day Cigarettes 1 Smokeless Tobacco: Never Tobacco Cessation:Ready to Q uit: No; Counseling Given: No Alcohol Use Standard Drinks/Week Comments Yes 0 (1 standard drink = 0.6 oz pur e alcohol) Sex and Gender Information Value Date Recorded Sex Assigned at Male 01/31/2020 3:07 PM EST Gender Identity Not on file Sexual Orientation Not on file Job Start Date Occupation Industry Not on file Not on file Not on file Last Filed Vital Signs Vital Sign Reading Time Taken Comments Blood Pressure 123/77 02/22/2023 2:43 PM EST Pulse 98 02/22/2023 2:43 PM EST Temperature 36.8 ??C (98.2 ??F) 02/22/2023 2:43 PM ES T Respiratory Rate 16 06/12/2020 10:45 AM EDT Oxygen Saturation 96% 02/22/2023 2:43 PM EST Inhaled Oxygen Concentration - - Weight 63.5 kg (140 lb) 10/16/2021 1:19 PM EDT Height 175.3 cm (5' 9 ) 10/16/2021 1:19 PM EDT Body Mass Index 20.67 10/16/2021 1:19 PM EDT Plan of Treatment Health Maintenance Due Date Last Done Comments Hepatitis B Vaccines (1 of 3 - 3-dose series) 1964 Hepatitis C Screening 1964 COVID-19 Vaccine (#1) 06/21/1965 Pneumococcal Vaccine (1 of 2 - PCV) 1970 Depression Screening 1976 BMI Counseling 1982 Preventative Health Evaluation 1982 Tobacco Cessation Counseling 1982 Colon Cancer Screening (Colonoscopy) 2009 Shingrix-Zoster Vaccine (1 o f 2) 2014 Influenza Vaccine (#1) 2023 DTap / Tdap / Td (3 - Td or Tdap) 04/06/2029 04/06/2019, 05/21/2010 RSV Ped < 20 months Aged Out No longe r eligible based on patient's age to complete this topic Medical Devices Implanted Type Area Second Operator Device Identifier Shelf Expiration Date Model / Serial / Lot Bonewax 2.5 Implanted:Qty: 1 on 06/12/2020 by Chris Hayden MD [place] [facility] Right: Clavicle 11/18/2024 / / [id number] Care Teams Diorama Model Maker Relationship Specialty Start Date End Date Janny Kitchen MD PCP - General Internal Medicine 10/09/21
--- OUTSIDE RECORDS SUMMARY | 2024-07-06 14:49 | XMS_ITS | Clinical Summary ---
Author Organization [facility] Address [address] [place] [address] Phone Care Team Providers Care Personal Protection Specialist Name Role Phone Janny Kitchen MD Primary Care Provider [phone] Allergies No known active allergies Medications dexAMETHasone (DECADRON) 4 mg tablet Take 1 tablet (4 mg total) by mouth 2 (two) times a day for 7 days. 14 each 4 Active pantoprazole (PROTONIX) 40 mg EC tablet TAKE 1 TABLET BY MOUTH EVERY MORNING ON EMPTY STOMACH. WAIT 30 MINS THEN EAT TO ACTIVATE MEDICATION 90 tablet 3 4 Active albuterol HFA (PROAIR HFA ; PROVENTIL HFA ; VENTOLIN HFA) 90 mcg/actuation inhaler Inhale 2 Puffs into the lungs every 4 hours as needed for Cough or Wheezing. 4 Active gabapentin (NEURONTIN) 300 mg capsuleIndicati ons:Chronic left shoulder pain Take 1 capsule (300 mg total) by mouth 3 (three) times a day. Start with 1 tablet once a day x 3 days, then increase to 1 tablet twice a day x 3 days then increase to 1 tablet 3 times a day 90 each 2 5 Active oxyCODONE (ROXICODONE) 5 mg immediate release tablet 1 tablet (5 mg total) every 3 (three) hours if needed for severe pain. Active ibuprofen (ADVIL,MOTRIN) 600 mg tablet Take 1 tablet (600 mg total) by mouth 3 (three) times a day if needed for mild pain. Active aspirin 325 mg tablet Take 1 tablet (325 mg total) by mouth 1 (one) time each day. Active acetaminophen (TYLENOL) 325 mg tablet Take 1 tablet (325 mg total) by mouth every 6 (six) hours if needed for mild pain. Active ipratropium-alb uteroL (DUONEB) 0.5-2.5 mg/3 mL nebulizer solution Take 3 mL by nebulization 4 (four) times a day. Four times a day for 30 days Active melatonin 3 mg tablet Take 1 tablet (3 mg total) by mouth at bedtime. Active gabapentin (NEURONTIN) 300 mg capsule Take 1 capsule (300 mg total) by mouth every 8 (eight) hours. Every eight hours for 30 days Active Active Problems Problem Noted Date Diagnosed Date Alcohol abuse 01/30/2024 GERD (gastroesophageal reflux disease) Substance use 08/12/2023 Overview (01/30/2024): see note 06/10/23, fentanyl/heroin, see note 08/12/23 Chronic bilateral low back pain 03/03/2021 Overview (01/30/2024): Last Assessment & Plan: Patient is 1 month s/p L3-4, L4-5, L5-S1 OLLIF and L3-S1 pedicle screw fixation. He states he still has significant morning pain, he wakes up with back pain and stiffness. It keeps him from sleeping well most days, he takes trazodone 200 mg at bedtime. He has some subjective left leg weakness. He states he has numbness from the distal thigh into the left knee, at times the leg will buckle on him. He denies fevers, sweats chills, wound drainage. He is using Dilaudid a couple times daily. He is ambulating with a cane. Patient will follow up with Dr. Lombardi in 6 weeks with lumbar spine x-rays. With time he should hopefully note continued improvements as things heal. All postop questions answered. Injury of left ankle 11/06/2020 Moderate episode of recurren t major depressive disorder (CMS/HCC V24, CMS/HCC V28) 11/06/2020 Elevated ferritin 04/22/2020 Overview (01/30/2024): 04/13/2020: Seen by Dr. Shepherd. ? Hemachromatosis Current mild episode of susan r depressive disorder ([facility] V24) 05/30/2018 Insomnia 05/30/2018 ETOH abuse 05/29/2015 Gastroesophageal reflux disease without esophagi tis 05/29/2015 Tobacco use disorder 05/29/2015 Fx eduardo, ashutoshom proc-closed 04/24/2010 Encounters Date Type Department Care Team Description 06/29/2024 Telephone Adult Medicine [address] [phone] Faiza Ray MA orders [id number] 06/28/2024 Telephone Adult Medicine [address] [phone] Faiza Ray MA 06/26/2024 Telephone Adult Medicine [address] [phone] Janny Kitchen MD faxed order ([facility] [id number]) 06/12/2024 10:30 AM EDT Office Visit Adult [address] [phone] Janny Kitchen MD Alcohol abuse (Primary Dx); Traumatic hemothorax, subsequent encounter; Gastroesophageal reflux disease without esophagitis; Substance use; Chronic bilateral low back pain with sciatica, sciatica laterality unspecified; Empyema ([facility] V24, [facility] V28) 06/06/2024 Telephone Adult Medicine [address] [phone] Janny Kitchen MD faxed order ([facility] [id number]) 05/31/2024 Telephone Adult [address] [phone] Damari Medina, [facility] Follow-up 05/30/2024 Telephone Adult [address] [phone] Janny Kitchen MD faxed order ([facility] [id number]) 05/25/2024 Telephone Adult [address] [phone] Janny Kitchen MD faxed order (Faxed order received from [facility] [id number] please sign and fax to [phone].) 05/24/2024 Telephone Adult Medicine [address] [phone] Janny Kitchen MD faxed order (Faxed order received from [facility] [id number] please sign and fax to [phone].) 05/22/2024 Billing Patient Not Present Adult [address] [phone] Janny Kitchen MD 05/15/2024 Telephone Adult [address] [phone] Faiza Ray MA home health certification [id number] 05/03/2024 11:16 AM EST - 05/03/2024 11:59 PM EST Hospital Encounter [address] [phone] Traumatic pneumothorax, sequela Discharge Disposition: Home or Self Care 05/03/2024 10:30 AM EST Office Visit Adult [address] [phone] Janny Kitchen MD Traumatic pneumothorax, sequela (Primary Dx); Alcohol abuse; Accidental fall, subsequent encounter; Closed fracture of multiple ribs of left side with routine healing, subsequent encounter 05/03/2024 Telephone Adult Medicine [address] [phone] Faiza Ray MA veterinary radiologist 04/30/2024 Telephone Adult [address] [phone] [facility] 04/26/2024 Telephone Adult [address] [phone] J[facility] ) 04/17/2024 10:30 AM EST Office Visit Adult [address] [phone] Janny Kitchen MD Trauma (Primary Dx); Pneumothorax, unspecified type; Closed fracture of multiple ribs with routine healing, unspecified laterality, subsequent encounter; Substance use; Tobacco use disorder; Acute on chronic back pain 04/12/2024 Telephone Adult [address] [phone] J[facility] MD [facility] 04/08/2024 3:48 PM EST - 04/08/2024 8:[address] [facility] [address] [place] [id number] Kevin Greenwood MD Fall, initial encounter (Primary Dx); Closed fracture of multiple ribs of left side, initial encounter; Closed head injury, initial encounter; Alcohol use disorder Discharge Disposition: Short Term Hospital from Last 3 Months Immunizations Name Administration Dates Next Due Tdap Tetanus diptheria acell ular pertussis (Boostrix; Adacel) 7yo and older 04/06/2019,05/21/2010 Surgical History Surgery Date Site/Laterality Comments LEG SURGERY Right PROCEDURE: HISTORICAL LEG SURGERY; COMMENT: right lower leg fracture, ORIF KNEE SURGERY Right PROCEDURE: HISTORICAL KNEE SURGERY; COMMENT: meniscus surgery OTHER SURGICAL HISTORY Left PROCEDURE: [place] UNLISTED PROCEDURE MEDIASTINUM; COMMENT: left chest wall injury while running OTHER SURGICAL HISTORY PROCEDURE: [place] DISPLACEMENT THERAPY PROETZ TYPE; COMMENT: injury with nail COLONOSCOPY 06/26/2015 PROCEDURE: HISTORICAL COLONOSCOPY; COMMENT: Polyp removed but not retrieved.; tics, hemorrhoids and poor bowel prep. Repeat in 1 year under propofol OTHER SURGICAL HISTORY 07/17/2021 PROCEDURE: [place] ARTHRODESIS POSTERIOR INTERBODY 1 NTRSPC LUMBAR; COMMENT: L3-4, L4-5, L5-S1 OLLIF, L3-S1 pedicle screw fixation, Dr. Lombardi Medical History Medical History Date Comments Gastroesophageal reflux dise ase without esophagitis 05/29/2015 DX:Gastroesophageal reflux d isease without esophagitis Elevated ferritin 04/22/2020 DX:Elevated fe rritin; COMMENT: 04/13/2020: Seen by Dr. Shepherd. ? Hemachromatosis GERD (gastroesophageal reflux disease) DX:GERD (gastroesophageal reflux disease) Alcohol abuse DX:Alcohol abuse Tobacco use DX:Tobacco use Alcohol use with alcohol-ind uced disorder (CMS/HCC V24) DX:Alcohol use with alcohol- induced disorder (HCC) Family History Medical History Relation Name Comments Cirrhosis Father etoh use; in hi s Lung cancer Mother smoker; by MVA Relation Name Status Comments Father Mother Social History Tobacco Use Types Packs/Day Years Used Date Smoking Tobacco: Every Day Cigarettes 0.5 40.3 Started: 03/21/1984 Smokeless Tobacco: Never Tobacco Cessation:Ready to Q uit: Not Asked; Counseling Given: Not Answered Alcohol Use Standard Drinks/Week Comments Yes 0 (1 standard drink = 0.6 oz pur e alcohol) Sex and Gender Information Value Date Recorded Sex Assigned at Male 04/08/2024 4:15 PM EST Legal Sex Male 10:35 PM EST Gender Identity Male 04/08/2024 4:15 PM EST Sexual Orientation Straight 04/08/2024 4: 15 PM EST Obstetrics History Last Filed Vital Signs Vital Sign Reading Time Taken Comments Blood Pressure 102/64 06/12/2024 10:35 AM EDT Pulse 86 06/12/2024 10:35 AM EDT Temperature 36.3 ??C (97.3 ??F) 06/12/2024 10:35 AM E DT Respiratory Rate 24 06/12/2024 10:35 AM EDT Oxygen Saturation 100% 06/12/2024 10:35 AM EDT Inhaled Oxygen Concentration - - Weight 63 kg (139 lb) 06/12/2024 10:35 AM EDT Height 175.3 cm (5' 9 ) 06/12/2024 10:35 AM EDT Body Mass Index 20.53 06/12/2024 10:35 AM EDT Plan of Treatment Upcoming Encounters Date Type Department Care Team (Late st Contact Info) Description 08/02/2024 11:30 AM EDT Office Visit Orthopedic Surgery - [place] [address] [facility] [address] [place] [phone] Nuria Beltrán MD [address] [facility] [address] [place] [address] Health Maintenance Due Date Last Done Comments Hepatitis A Vaccines (1 of 2 - Risk 2-dose series) 12/22/1983 Hepatitis B Vaccines (1 of 3 - 19+ 3-dose series) 12/22/1983 Pneumococcal Vaccine: 50+ Years (1 of 2 - PCV) 12/22/1983 Pneumococcal Vaccine: Pediatrics (0 to 5 Years) and At-Risk Patients (6 to 64 Years) (1 of 2 - PCV) 12/22/1983 Zoster Vaccines (1 of 2) 2014 HIV Screening 02/26/2022 Lung Cancer Screening (Low Dose CT) 02/26/2022 Social Influencers of Health Screening 02/26/2022 COVID-19 Vaccine (3 - 2023-2 5 season) 2023 12/11/2020, 10/30/2020 Depression Screening 08/11/2024 08/12/2023 Cholesterol Screening (Lipid Panel) 11/13/2028 11/14/2023, 11/14/2023 DTaP,Tdap,and Td Vaccines (3 - Td or Tdap) 04/06/2029 04/06/2019, 05/21/2010 Colorectal Cancer Screening: Colonoscopy 02/01/2033 02/01/2023 RSV Immunization Adult Patients (1 - 1-dose 75+ series) 12/22/2039 Hepatitis C Screening Completed 04/25/2020 Influenza Vaccine Completed 05/06/2024 HIB Vaccines Aged Out No longer eligi ble based on patient's age to complete this topic HPV Vaccines Aged Out No longer eligi ble based on patient's age to complete this topic IPV Vaccines Aged Out No longer eligi ble based on patient's age to complete this topic MMR Vaccines Aged Out No longer eligi ble based on patient's age to complete this topic Meningococcal ACWY Vaccine Aged Out N o longer eligible based on patient's age to complete this topic Meningococcal B Vaccine Aged Out No l onger eligible based on patient's age to complete this topic RSV Immunization Patients Under 20 months Aged Out No longer eligible b ased on patient's age to complete this topic Varicella Vaccines Aged Out No longer eligible based on patient's age to complete this topic Medical Devices Implanted Type Area Engine Builder Device Identifier Shelf Expiration Date Model / Serial / Lot Bonewax 2.5 Implanted:Qty: 1 on 06/12/2020 by Chris Hayden MD Right: Clavicle 11/18/2024 / / [id number] Procedures Procedure Name Priority Date/Time Associated Diagnosis Comments XR CHEST 2 VIEWS STAT 05/03/2024 11:2 6 AM EST Traumatic pneumothorax, sequela CT CHEST/ABDOMEN/PELVIS W CONTRAST STAT 04/08/2024 5:[address] CERVICAL SPINE WO CONTRAST STAT 04/08/2024 5:[address] HEAD WO CONTRAST STAT 04/08/2024 5 :56 PM EST COMPLETE BLOOD COUNT STAT 04/08/2024 4:54 PM EST ETHANOL STAT 04/08/2024 4:54 PM EST COMPREHENSIVE METABOLIC PANEL STAT 04/08/2024 4:54 PM EST RESPIRATORY VIRUS PANEL MOLECULAR STUDY STAT 04/08/2024 4:25 PM EST LIPID PANEL Routine 11/14/2023 HM DEPRESSION SCREENING Routine 08/12/2023 HM COLONOSCOPY Routine 02/01/2023 HM HEPATITIS C SCREENING Routine 04/25/2020 from Last 3 Months or Most Recently Relevant to Health Maintenance Results * XR Chest 2 Views (05/03/2024 11:26 AM EST) Anatomical Region Laterality Modality Body Radiographic Astrid ging 05/03/2024 11:3 3 AM EST Addenda Addendum by Yokasta Ventura MD on 05/03/2024 2:09 PM EST Addendum to the report. Chest radiographs from [facility] from 04/24/2024 became available for comparison. Previously noted arm small pneumothorax is no longer present. The fluid collection along the left lateral wall and in the interlobar fissure is a new finding. Central parenchymal opacity is also a new finding. It could represent infiltrate or lung contusion. As mentioned before, chest CT is recommended for further assessment. -------- ADDENDUM -------- Dictated By: Yokasta Ventura Dictated Date: 05/03/2024 14:06 ET Assigned Physician: Yokasta Ventura Reviewed and Electronically Signed By: Yokasta Ventura Signed Date: 05/03/2024 14:09 ET Workstation ID: [id number] Transcribed By: Self Edit Transcribed Date: 05/03/2024 14:06 ET Narrative 05/03/2024 11:50 AM EST Chest, 2 views. History status post fall, hospitalization at [facility] for hemopneumothorax and multiple ribs fractures. No previous studies are available for direct comparison. Request for prior [facility] imaging was placed. There is decreased volume in the left lung. There are fractures of the left third, fourth, fifth, sixth and seventh ribs. There is ??probably loculated left pleural effusion and along the lateral wall as well as fluid in the interlobular fissure. There is area of increased attenuation in the central aspect of the left lung. There are multiple healed fractures in the right hemithorax involving the fourth fifth and sixth ribs. Cardiomediastinal silhouette is displaced to the left. Heart is normal in size. There is no visible pneumothorax. CONCLUSIONS: Multiple left ribs fractures. Probable loculated left pleural effusion along the lateral wall of the chest as well as in the interim lobular fissure. Decreased volume in the left lung with mild mediastinal shift to the left. Area of increased density in the central aspect of the right lung of uncertain nature. Chest CT is recommended for further assessment. Addendum will be provided when ??prior imaging become available. -------- FINAL REPORT -------- Dictated By: Yokasta Ventura Dictated Date: 05/03/2024 11:33 ET Assigned Physician: Yokasta Ventura Reviewed and Electronically Signed By: Yokasta Ventura Signed Date: 05/03/2024 11:50 ET Workstation ID: [id number] Transcribed By: Self Edit Transcribed Date: 05/03/2024 11:33 ET Procedure Note Yokasta Ventura MD - 05/03/2024 Chest, 2 views. History status post fall, hospitalization at [facility] forhemopneumothorax and multiple ribs fractures. No previous studies are available for direct comparison[facility] There is decreased volume in the left lung. There are fractures of the left third, fourth, fifth, sixth and seventhribs. There is probably loculated left pleural effusion and along thelateral wall as well as fluid in the interlobular fissure. There is areaof increased attenuation in the central aspect of the left lung. There are multiple healed fractures in the right hemithorax involving thefourth fifth and sixth ribs. Cardiomediastinal silhouette is displaced tothe left. Heart is normal in size. There is no visible pneumothorax. CONCLUSIONS: Multiple left ribs fractures. Probable loculated left pleuraleffusion along the lateral wall of the chest as well as in the interimlobular fissure. Decreased volume in the left lung with mild mediastinalshift to the left. Area of increased density in the central aspect of theright lung of uncertain nature. Chest CT is recommended for furtherassessment. Addendum will be provided when prior imaging become available. -------- FINAL REPORT -------- Dictated By: Yokasta Ventura Dictated Date: 05/03/2024 11:33 ET Assigned Physician: Yokasta Ventura Reviewed and Electronically Signed By: Yokasta Ventura Signed Date: 05/03/2024 11:50 ET Workstation ID: [id number] Transcribed By: Self Edit Transcribed Date: 05/03/2024 11:33 ET Janny Kitchen MD IMG XR PROCEDURES Edited Result - Final * CT Chest/Abdomen/Pelvis w Contrast (04/08/2024 5:57 PM EST) Anatomical Region Laterality Modality Body Computed Tomogra phy 04/08/2024 7:30 PM EST Impressions 04/08/2024 7:30 PM EST 1. Fractures of the left 10th through 12th ribs posteriorly associated with small hemothorax and moderate pneumothorax. 2. No acute traumatic process in the abdomen and pelvis. This document has been electronically signed by: Tanner Hodges MD on 04/08/2024 19:30:23 Narrative 04/08/2024 7:[address] chest, abdomen and pelvis with contrast Comparison: None Findings: The heart size is normal. The visualized thyroid and mediastinum are unremarkable. There is adjacent soft tissue emphysema. There is a small left hemothorax. There is a small to moderate left pneumothorax The gallbladder and solid organs are within normal limits. No renal stones. No bowel obstruction, pneumoperitoneum, or pneumatosis. There is colonic diverticulosis without evidence of diverticulitis. The GI tract is otherwise unremarkable. There is a fracture of the left transverse process of L1. There is a comminuted fracture of the posterior aspect of the left 11th and 12th ribs. There is also a simple minimally displaced fracture of the posterior aspect of the left 10th rib. Multiple remote rib fractures are noted. Procedure Note Tanner Hodges MD - 04/08/2024 CT chest, abdomen and pelvis with contrast Comparison: None Findings: The heart size is normal. The visualized thyroid and mediastinum are unremarkable. There is adjacent soft tissue emphysema. There is a small left hemothorax. There is a small to moderate left pneumothorax The gallbladder and solid organs are within normal limits. No renal stones. No bowel obstruction, pneumoperitoneum, or pneumatosis. There is colonic diverticulosis without evidence of diverticulitis. TheGI tract is otherwise unremarkable. There is a fracture of the left transverse process of L1. There is a comminuted fracture of the posterior aspect of the left 11th and 12th ribs. There is also a simple minimally displaced fracture ofthe posterior aspect of the left 10th rib. Multiple remote rib fractures are noted. IMPRESSION: 1. Fractures of the left 10th through 12th ribs posteriorly associated with small hemothorax and moderate pneumothorax. 2. No acute traumatic process in the abdomen and pelvis. This document has been electronically signed by: Tanner Hodges MD on 04/08/2024 19:30:23 Kevin Greenwood MD [facility] [place] [place] CT PROCEDURES Final Result * CT Cervical Spine wo Contrast (04/08/2024 5:56 PM EST) Anatomical Region Laterality Modality Spine, C-spine Computed Tomogra phy 04/08/2024 7:21 PM EST Impressions 04/08/2024 7:21 PM EST No acute findings. Degenerative disc disease. This document has been electronically signed by: Tanner Hodges MD on 04/08/2024 19:21:52 Narrative 04/08/2024 7:[address] cervical spine without contrast Comparison: None Findings: Normal vertebral body alignment. There is degenerative disc disease particularly at C5-6 level where there is disc space narrowing and endplate productive changes. There is bilateral foraminal narrowing at this level. No acute fractures or dislocations. Visualized intracranial contents are unremarkable. Soft tissues of the neck are normal. Lung apices are clear. Procedure Note Tanner Hodges MD - 04/08/2024 CT cervical spine without contrast Comparison: None Findings: Normal vertebral body alignment. There is degenerative disc disease particularly at C5-6 level wherethere is disc space narrowing and endplate productive changes. There is bilateral foraminal narrowing at this level. No acute fractures or dislocations. Visualized intracranial contents are unremarkable. Soft tissues of the neck are normal. Lung apices are clear. IMPRESSION: No acute findings. Degenerative disc disease. This document has been electronically signed by: Tanner Hodges MD on 04/08/2024 19:21:52 Kevin Greenwood MD [facility] [place] [place] CT PROCEDURES Final Result * CT Head wo Contrast (04/08/2024 5:56 PM EST) Anatomical Region Laterality Modality Head and Neck Computed Tomogra phy 04/08/2024 7:18 PM EST Impressions 04/08/2024 7:18 PM EST 1. No acute intracranial findings. This document has been electronically signed by: Tanner Hodges MD on 04/08/2024 19:18:52 Narrative 04/08/2024 7:[address] head without contrast Comparison: None Findings: No intra-axial mass, midline shift, hydrocephalus, or acute hemorrhage. No significant atrophy-like change or white matter disease. There is no sinus or mastoid fluid. The orbits are within normal limits. No skull fracture. Occipital calvarial cystic/lytic lesions likely represent arachnoid granulations. Procedure Note Tanner Hodges MD - 04/08/2024 CT head without contrast Comparison: None Findings: No intra-axial mass, midline shift, hydrocephalus, or acute hemorrhage. No significant atrophy-like change or white matter disease. There is no sinus or mastoid fluid. The orbits are within normal limits. No skull fracture. Occipital calvarial cystic/lytic lesions likely represent arachnoid granulations. IMPRESSION: 1. No acute intracranial findings. This document has been electronically signed by: Tanner Hodges MD on 04/08/2024 19:18:52 Kevin Greenwood MD IM CT PROCEDURES Final Result * (ABNORMAL) CBC (04/08/2024 4:54 PM EST) WBC 9.2 4.8 - 10.8 K/mcL LAB HEMETOLOGY METHOD 04/08/2024 5:13 PM [facility] RBC 4.40(L) 4.50 - 5.50 M/mcL LAB HEMETOLOGY METHOD 04/08/2024 5:13 PM [facility] Hemoglobin 16.0 13.5 - 17.5 g/dL LAB HEMETOLOGY METHOD 04/08/2024 5:13 PM [facility] Hematocrit 46.5 42.0 - 54.0 % LAB HEMETOLOGY METHOD 04/08/2024 5:13 PM [facility] MCV 105.0(H) 79.0 - 98.0 FL LAB HEMETOLOGY METHOD 04/08/2024 5:13 PM [facility] MCH 36.1(H) 27.0 - 32.0 pcg LAB HEMETOLOGY METHOD 04/08/2024 5:13 PM EST [facility] MCHC 34.4 32.0 - 37.0 g/dL LAB HEMETOLOGY METHOD 04/08/2024 5:13 PM EST [facility] RDW 12.3 11.0 - 15.0 % LAB HEMETOLOGY METHOD 04/08/2024 5:13 PM EST [facility] Platelets 168 130 - 400 K/mcL LAB HEMETOLOGY METHOD 04/08/2024 5:13 PM EST [facility] MPV 9.5 7.0 - 11.0 FL LAB HEMETOLOGY METHOD 04/08/2024 5:13 PM EST [facility] NRBC 0.0 <1.0 % LAB HEMETOLOGY METHOD 04/08/2024 5:13 PM EST [facility] NRBC Absolute 0.00 <0.10 K/mcL LAB HEMETOLOGY METHOD 04/08/2024 5:13 PM EST [facility] Blood Venous blood specimen / Unknown Venipuncture / Unknown 04/08/2024 4:54 PM EST 04/08/2024 5:09 PM EST Dharmesh MARSH LAB BLOOD ORDERABLES Final R esult [facility] [address] [place] [address], * (ABNORMAL) Ethanol (04/08/2024 4:54 PM EST) Ethanol Level 166(H) 0 - 10 mg/dL LAB CHEMISTRY METHOD 04/08/2024 5:41 PM EST [facility] Blood Venous blood specimen / Unknown Venipuncture / Unknown 04/08/2024 4:54 PM EST 04/08/2024 5:09 PM EST us Dharmesh MARSH LAB BLOOD ORDERABLES Final R esult [facility] [address] [place] [address], * (ABNORMAL) Comprehensive Metabolic Panel (CMP) (04/08/2024 4:54 PM EST) Sodium 139 133 - 145 mmol/L LAB CHEMISTRY METHOD 04/08/2024 5:41 PM [facility] Potassium 3.4(L) 3.5 - 5.5 mmol/L LAB CHEMISTRY METHOD 04/08/2024 5:41 PM [facility] Chloride 106 96 - 110 mmol/L LAB CHEMISTRY METHOD 04/08/2024 5:41 PM [facility] CO2 29 21 - 32 mmol/L LAB CHEMISTRY METHOD 04/08/2024 5:41 PM [facility] Anion Gap 4 3 - 11 LAB CHEMISTRY METHOD 04/08/2024 5:41 PM [facility] Glucose 102(H) 70 - 100 mg/dL LAB CHEMISTRY METHOD 04/08/2024 5:41 PM [facility] BUN 12 5 - 25 mg/dL LAB CHEMISTRY METHOD 04/08/2024 5:41 PM [facility] Creatinine 0.72 0.70 - 1.30 mg/dL LAB CHEMISTRY METHOD 04/08/2024 5:41 PM [facility] eGFR 105 >=60 mL/min/1. 73m2 LAB CHEMISTRY METHOD 04/08/2024 5:41 PM [facility] Comment:Calculation based on the??Chronic Kidney Disease Epidemiology Collaboration (CKD-EPI) equation refit??without adjustment for race. BUN/Creatinine Ratio 16.7 LAB CHEMISTRY METHOD 04/08/2024 5:41 PM [facility] Calcium 9.0 8.5 - 10.5 mg/dL LAB CHEMISTRY METHOD 04/08/2024 5:41 PM [facility] AST (SGOT) 25 10 - 42 unit/L LAB CHEMISTRY METHOD 04/08/2024 5:41 PM [facility] ALT (SGPT) 29 10 - 60 unit/L LAB CHEMISTRY METHOD 04/08/2024 5:41 PM [facility] Alkaline Phosphatase 115 42 - 121 unit/L LAB CHEMISTRY METHOD 04/08/2024 5:41 PM [facility] Total Protein 7.6 6.0 - 8.0 g/dL LAB CHEMISTRY METHOD 04/08/2024 5:41 PM [facility] Albumin 4.0 3.2 - 5.0 g/dL LAB CHEMISTRY METHOD 04/08/2024 5:41 PM [facility] Total Bilirubin 0.3 0.0 - 1.4 mg/dL LAB CHEMISTRY METHOD 04/08/2024 5:41 PM [facility] Blood Venous blood specimen / Unknown Venipuncture / Unknown 04/08/2024 4:54 PM EST 04/08/2024 5:09 PM EST Dharmesh MARSH LAB BLOOD ORDERABLES Final R esult [facility] [address] [place] [address], * Respiratory virus panel molecular study (04/08/2024 4:25 PM EST) Pathologist [facility] Adenovirus Detection by PCR Not Detected Not Detected LAB MICROBIOLOGY METHOD 04/08/2024 6:08 PM [facility] Influenza A PCR Not Detected Not Detected LAB MICROBIOLOGY METHOD 04/08/2024 6:08 PM [facility] Influenza B PCR Not Detected Not Detected LAB MICROBIOLOGY METHOD 04/08/2024 6:08 PM [facility] Coronavirus 229E Not Detected Not Detected LAB MICROBIOLOGY METHOD 04/08/2024 6:08 PM [facility] Coronavirus HKU1 Not Detected Not Detected LAB MICROBIOLOGY METHOD 04/08/2024 6:08 PM [facility] Coronavirus OC43 Not Detected Not Detected LAB MICROBIOLOGY METHOD 04/08/2024 6:08 PM [facility] Coronavirus NL63 Not Detected Not Detected LAB MICROBIOLOGY METHOD 04/08/2024 6:08 PM [facility] Parainfluenza Virus 1 Not Detected Not Detected LAB MICROBIOLOGY METHOD 04/08/2024 6:08 PM [facility] Parainfluenza Virus 2 Not Detected Not Detected LAB MICROBIOLOGY METHOD 04/08/2024 6:08 PM [facility] Parainfluenza Virus 3 Not Detected Not Detected LAB MICROBIOLOGY METHOD 04/08/2024 6:08 PM [facility] Parainfluenza Virus 4 Not Detected Not Detected LAB MICROBIOLOGY METHOD 04/08/2024 6:08 PM [facility] RSV PCR Not Detected Not Detected LAB MICROBIOLOGY METHOD 04/08/2024 6:08 PM [facility] Human Metapneumovirus A and B Not Detected Not Detected LAB MICROBIOLOGY METHOD 04/08/2024 6:08 PM [facility] Rhinovirus/Entero virus Not Detected Not Detected LAB MICROBIOLOGY METHOD 04/08/2024 6:08 PM [facility] Bordetella pertussis Not Detected Not Detected LAB MICROBIOLOGY METHOD 04/08/2024 6:08 PM [facility] Bordetella parapertussis Not Detected Not Detected LAB MICROBIOLOGY METHOD 04/08/2024 6:08 PM [facility] Mycoplasma pneumo by PCR Not Detected Not Detected LAB MICROBIOLOGY METHOD 04/08/2024 6:08 PM [facility] Chlamydia pneumoniae Not Detected Not Detected LAB MICROBIOLOGY METHOD 04/08/2024 6:08 PM EST [facility] SARS COV-2 Not Detected Not Detected LAB MICROBIOLOGY METHOD 04/08/2024 6:08 PM EST [facility] Swab Both anterior nares / Unknown Non-blood Collection / Unknown 04/08/2024 4:25 PM EST 04/08/2024 5:09 PM EST Narrative [facility] - 04/08/2024 6:08 PM EST Testing was performed using the [employer] Respiratory Pathogen PCR Assay. All results must be correlated with the clinical findings. Results should not be used as the sole basis for diagnosis. False Negative results may occur from the presence of sequence variants in the region targeted by the assay or the presence of inhibitors. Results may be affected by concurrent antiviral/antimicrobial therapy or levels of organisms that are below the limit of detection. Kevin Greenwood MD LAB MICROBIOLOGY - [facility] Final Result [facility] [address] [place] [address], * (ABNORMAL) Lipid panel (11/14/2023) [facility] LDL/HDL Ratio 3 0 - 4 Triglycerides 100 0 - 150 mg/dL Cholesterol 186 0 - 200 mg/dL HDL 64 >=40 mg/dL LDL Cholesterol 102(A) 0 - 100 mg/dL Blood Venous blood specimen / Unknown [facility] Provider LAB BLOOD ORDERABLES Kendra l Result * Depression Screening (08/12/2023) [facility] Depression Screening Abstracted [facility] Provider HEALTH MAINTENANCE Final Result * Colonoscopy (02/01/2023) [facility] Colonoscopy Normal, Abstracted Anatomical Region Laterality Modality Other [facility] Provider HEALTH MAINTENANCE Final Result * Hepatitis C Screening (04/25/2020) [facility] Hepatitis C Screening Abstracted us Historical Provider HEALTH MAINTENANCE Final Result from Last 3 Months or Most Recently Relevant to Health Maintenance Insurance [facility] Advance Directives Documents on File Type Date Recorded Patient French Translator Expl anation Health Care Decision (hx) 10/02/2019 AD BENAVIDES DIRECTIVE Health Care Decision (hx) 10/02/2019 AD BENAVIDES DIRECTIVE Health Care Decision (hx) 10/02/2019 AD BENAVIDES DIRECTIVE Health Care Decision (hx) 10/02/2019 AD BENAVIDES DIRECTIVE Health Care Decision (hx) 10/02/2019 AD BENAVIDES DIRECTIVE Health Care Decision (hx) 10/02/2019 AD BENAVIDES DIRECTIVE Health Care Decision (hx) 10/02/2019 AD BENAVIDES DIRECTIVE Health Care Decision (hx) 10/02/2019 AD BENAVIDES DIRECTIVE Health Care Decision (hx) 10/02/2019 AD BENAVIDES DIRECTIVE Health Care Decision (hx) 10/02/2019 AD BENAVIDES DIRECTIVE Health Care Decision (hx) 10/02/2019 AD BENAVIDES DIRECTIVE Health Care Decision (hx) 10/02/2019 AD BENAVIDES DIRECTIVE Health Care Decision (hx) 10/02/2019 AD BENAVIDES DIRECTIVE Health Care Decision (hx) 10/02/2019 AD BENAVIDES DIRECTIVE Health Care Decision (hx) 10/02/2019 AD BENAVIDES DIRECTIVE Health Care Decision (hx) 09/27/2019 AD BENAVIDES DIRECTIVE Health Care Decision (hx) 09/27/2019 AD BENAVIDES DIRECTIVE Health Care Decision (hx) 09/27/2019 AD BENAVIDES DIRECTIVE Health Care Decision (hx) 09/27/2019 AD BENAVIDES DIRECTIVE Health Care Decision (hx) 09/27/2019 AD BENAVIDES DIRECTIVE Health Care Decision (hx) 09/27/2019 AD BENAVIDES DIRECTIVE Health Care Decision (hx) 09/27/2019 AD BENAVIDES DIRECTIVE Health Care Decision (hx) 09/27/2019 AD BENAVIDES DIRECTIVE Health Care Decision (hx) 09/27/2019 AD BENAVIDES DIRECTIVE Health Care Decision (hx) 09/27/2019 AD BENAVIDES DIRECTIVE Health Care Decision (hx) 09/27/2019 AD BENAVIDES DIRECTIVE Health Care Decision (hx) 09/27/2019 AD BENAVIDES DIRECTIVE Health Care Decision (hx) 09/27/2019 AD BENAVDIES DIRECTIVE Health Care Decision (hx) 09/27/2019 AD BENAVIDES DIRECTIVE Health Care Decision (hx) 09/27/2019 AD BENAVIDES DIRECTIVE Care Teams Personal Protection Specialist Relationship Specialty Start Date End Date Janny Kitchen MD [address] [place] [id number] PCP - General Internal Medicine 08/21/20
--- NOTE | 2024-07-06 15:34 | HO.SPINEOV ---
Intake Visit Reasons: Discuss sx Intake Note: Mr. Zhu is here today to Discuss Surgery. Manager Community Outreach Required: No Allergies No Known Allergies Allergy (Verified 07/06/24 15:34) Assessment & Plan Assessment & Plan (1) Painful orthopaedic hardware: Code(s): T84.84XA - Pain due to internal orthopedic prosthetic devices, implants and grafts, initial encounter Category: Medical Plan On 07/06/2024 I saw Medardo Zhu. He was scheduled to have his left sided lumbar spinal instrumentation removed in October of 2023. He tested positive for cocaine and the surgery was canceled. Today comes in with similar complaints and requests to have the screws removed. He denies that he is using cocaine. Therefore we will put him back on the schedule for August 09. He is aware that he will be tested for cocaine again. Narinder Lombardi MD, PhD Spine Fellowship Trained Neurosurgeon Director, [facility] Coding Level of Care Code Est Pt Level 2 (41364) Diagnoses Painful orthopaedic hardware T84.84XA
== END 2024-07-06 16:17 | disposition home or self-care (01) ==
LOC: HO.HNS 14:35
PROVIDERS: PCP Internal Medicine; Visit Provider Neurological Surgery
DX: T84.84XA Pain due to internal orthopedic prosthetic devices, implants and grafts, initial encounter (principal)
CPT/HCPCS: 99212

== ENCOUNTER → 2024-07-06 14:34 | Outpatient (BNVA) | payer OTHER, SELFPAY | PROVIDERS: PCP Internal Medicine; Visit Provider Neurological Surgery | DX: Z01.818 Encounter for other preprocedural examination (principal); T84.84XA Pain due to internal orthopedic prosthetic devices, implants and grafts, initial encounter | CPT/HCPCS: 99212 ==

== ENCOUNTER 2024-09-27 12:53 | Outpatient (AMB) | payer OTHER, SELFPAY ==
--- OUTSIDE RECORDS SUMMARY | 2024-09-27 12:59 | XMS_ITS ---
Author Name [facility] Organization Unknown Encounters Encounter Type Encounter Reason Primary Diagnosis Location Date Ambulatory [facility] 02/13/2024 Care Team Organization Name Specialty Phone Email Start Date End Da te [facility] 2024
--- OUTSIDE RECORDS SUMMARY | 2024-09-27 12:59 | XMS_ITS | Clinical Summary ---
Author Organization [facility] Address [address] [place] [address] Phone Care Team Providers Care Supervisor [place] Name Role Phone Janny Kitchen MD Primary Care Provider [phone] Allergies No known active allergies Medications dexAMETHasone (DECADRON) 4 mg tablet Take 1 tablet (4 mg total) by mouth 2 (two) times a day for 7 days. 14 each 01/26/20 24 Active pantoprazole (PROTONIX) 40 mg EC tablet TAKE 1 TABLET BY MOUTH EVERY MORNING ON EMPTY STOMACH. WAIT 30 MINS THEN EAT TO ACTIVATE MEDICATION 90 tablet 3 01/27/20 24 Active oxyCODONE (ROXICODONE) 5 mg immediate release [...] hours if needed for mild pain. Active ipratropium-al buteroL (DUONEB) 0.5-2.5 mg/3 mL nebulizer solution Take 3 mL by nebulization 4 (four) times a day. Four times a day for 30 days Active apixaban (ELIQUIS) 5 mg tablet Take 1 tablet (5 mg total) by mouth 2 (two) times a day. One in the morning and one a night per patient Active albuterol HFA (PROAIR HFA ; PROVENTIL HFA ; VENTOLIN HFA) 90 mcg/actuation inhalerIndicat ions:Pulmonary embolism without acute cor pulmonale, unspecified chronicity, unspecified pulmonary embolism type (CMS/[facility] V24, CMS/[facility] V28) Inhale 2 puffs by mouth 4 (four) times a day. 6.7 g 1 09/04/19 25 Active melatonin 3 mg tablet Take 1 tablet (3 mg total) by mouth at bedtime. 30 tablet 09/04/19 25 Active gabapentin (NEURONTIN) 300 mg capsuleIndicat ions:Chronic left shoulder pain Take 1 capsule (300 mg total) by mouth 3 (three) times a day. 270 capsule 1 09/21/19 25 Active albuterol HFA (PROAIR HFA ; PROVENTIL HFA ; VENTOLIN HFA) 90 mcg/actuation inhaler Inhale 2 Puffs into the lungs every 4 hours as needed for Cough or Wheezing. 11/14/19 24 2024 Discontinued(R eorder) gabapentin (NEURONTIN) 300 mg capsuleIndicat ions:Chronic left shoulder pain Take 1 capsule (300 mg total) by mouth 3 (three) times a day. Start with 1 tablet once a day x 3 days, then increase to 1 tablet twice a day x 3 days then increase to 1 tablet 3 times a day 90 each 2 04/02/19 25 2024 Discontinued melatonin 3 mg tablet Take 1 tablet (3 mg total) by mouth at bedtime. 2024 Discontinued(R eorder) gabapentin (NEURONTIN) 300 mg capsule Take 1 capsule (300 mg total) by mouth every 8 (eight) hours. Every eight hours for 30 days 2024 Discontinued diclofenac (VOLTAREN) 1 % topical gel Apply 4 g topically 4 (four) times a day. 480 g 08/03/19 25 2024 Active Problems Problem Noted Date Diagnosed Date Pulmonary embolism without a cute cor pulmonale (CMS/[facility] V24, CMS/[facility] V28) 07/31/2024 Overview (07/31/2024): Is a dental finding during hospitalization for traumatic rib fracture July 16, 2024 Alcohol abuse 01/30/2024 GERD (gastroesophageal reflux disease) [...] episode of recurren t major depressive disorder (CMS/[facility] V24, CMS/[facility] V28) 11/06/2020 Elevated ferritin 04/22/2020 Overview (01/30/2024): 04/13/2020: Seen by Dr. Shepherd. ? Hemachromatosis Current mild episode of susan r depressive disorder (CMS/[facility] V24) 05/30/2018 Insomnia 05/30/2018 ETOH abuse 05/29/2015 Gastroesophageal reflux disease without esophagi tis 05/29/2015 Tobacco use disorder 05/29/2015 Fx scapul, acrom proc-closed 04/24/2010 Encounters Date Type Department Care Team Description 09/03/2024 9:30 AM EDT Office Visit Adult Medicine [address] [phone] Janny Kitchen MD Pulmonary embolism without acute cor pulmonale, unspecified chronicity, unspecified pulmonary embolism type (CMS/HCC V24, CMS/HCC V28) (Primary Dx); Chronic low back pain, unspecified back pain laterality, unspecified whether sciatica present 08/21/[address] [phone] Janny Kitchen MD Request For Order(s) (PFT) 08/10/[address] [phone] Janny Kitchen MD call back; Pre-operative Clearance 08/09/2024 10:40 AM EDT Ancillary Procedure Orthopedic Surgery [facility] [address] [phone] 08/09/2024 10:30 AM EDT Procedure visit Orthopedic [facility] [address] [phone] Nuria Beltrán MD Adhesive capsulitis of left shoulder (Primary Dx) 08/02/2024 11:30 AM EDT Office Visit Orthopedic [facility] [address] [address] Nuria Beltrán MD Adhesive capsulitis of left shoulder (Primary Dx) 07/31/2024 11:15 AM EDT Office Visit [address] [phone] Janny Kitchen MD Alcohol abuse (Primary Dx); Gastroesophageal reflux disease without esophagitis; Closed traumatic nondisplaced fracture of multiple ribs with routine healing, unspecified laterality, subsequent encounter; Pulmonary embolism without acute cor pulmonale, unspecified chronicity, unspecified pulmonary embolism type (CMS/HCC V24, CMS/HCC V28); Smoker; Chronic low back pain, unspecified back pain laterality, unspecified whether sciatica present 06/29/[address] [phone] Faiza Ray MA orders [phone] 06/28/2024 Telephone Adult Medicine [address] [phone] Faiza Ray MA from Last 3 Months Immunizations Name Administration Dates Next Due Tdap Tetanus diptheria acell ular pertussis (Boostrix; Adacel) 7yo and older 04/06/2019,05/21/2010 Surgical History Surgery Date Site/Laterality Comments LEG SURGERY Right PROCEDURE: HISTORICAL LEG SURGERY; COMMENT: right lower leg fracture, ORIF KNEE SURGERY Right PROCEDURE: HISTORICAL KNEE SURGERY; COMMENT: meniscus surgery OTHER SURGICAL HISTORY Left PROCEDURE: OK UNLISTED PROCEDURE MEDIASTINUM; COMMENT: left chest wall injury while running OTHER SURGICAL HISTORY PROCEDURE: OK DISPLACEMENT THERAPY PROETZ TYPE; COMMENT: injury with nail COLONOSCOPY 06/26/2015 PROCEDURE: HISTORICAL COLONOSCOPY; COMMENT: Polyp removed but not retrieved.; tics, hemorrhoids and poor bowel prep. Repeat in 1 year under propofol OTHER SURGICAL HISTORY 07/17/2021 PROCEDURE: OK ARTHRODESIS POSTERIOR INTERBODY 1 NTRSPC LUMBAR; COMMENT: [...] Cirrhosis Father etoh use; in hi s 30's Lung cancer Mother smoker; by MVA Relation Name Status Comments Father Mother Social History Tobacco Use Types Packs/Day Years Used Date Smoking Tobacco: Every Day Cigarettes 0.5 40.5 Started: 03/21/1984 Smokeless Tobacco: Never Tobacco Cessation:Ready [...] Sign Reading Time Taken Comments Blood Pressure 110/68 09/03/2024 9:20 AM EDT Pulse 82 09/03/2024 9:20 AM EDT Temperature 36.3 C (97.3 F) 09/03/2024 9:20 AM EDT Respiratory Rate 20 09/03/2024 9:20 AM EDT Oxygen Saturation 97% 07/31/2024 11:21 AM EDT Inhaled Oxygen Concentration - - Weight 65.8 kg (145 lb) 09/03/2024 9:20 AM EDT Height 175.3 cm (5' 9.02 ) 09/03/2024 9:20 AM ED T Body Mass Index 21.4 09/03/2024 9:20 AM EDT Plan of Treatment Health Maintenance Due Date Last Done Comments Hepatitis A Vaccines (1 of 2 - Risk 2-dose series) 12/22/1983 Hepatitis B Vaccines (1 of 3 - 19+ 3-dose series) 12/22/1983 Pneumococcal Vaccine: 50+ Years (1 of 2 - PCV) 12/22/1983 Pneumococcal Vaccine: Pediatrics (0 to 5 Years) and At-Risk Patients (6 to 49 Years) (1 of 2 - PCV) 12/22/1983 Zoster Vaccines (1 of 2) 2014 HIV Screening 02/26/2022 Lung Cancer Screening (Low Dose CT) 02/26/2022 Social Influencers of Health Screening 02/26/2022 COVID-19 Vaccine (3 - 2023-2 5 season) 2023 12/11/2020, 10/30/2020 Depression Screening 08/11/2024 08/12/2023 Influenza Vaccine (#1) 2024 05/06/2024 Cholesterol Screening (Lipid Panel) 11/13/2028 11/14/2023, 11/14/2023 DTaP,Tdap,and Td Vaccines (3 - Td or Tdap) 04/06/2029 04/06/2019, 05/21/2010 Colorectal Cancer Screening: Colonoscopy 02/01/2033 02/01/2023 RSV Immunization Adult Patients (1 - 1-dose 75+ series) 12/22/2039 Hepatitis C Screening Completed 04/25/2020 HIB Vaccines Aged Out No longer eligi [...] this topic Medical Devices Implanted Type Area Solder Deposit Operator Device Identifier Shelf Expiration Date Model / Serial / Lot Bonewax 2.5 Implanted:Qty: 1 on 06/12/2020 by Chris Hayden MD Right: Clavicle 11/18/2024 / / [id number] Procedures Procedure Name Priority Date/Time Associated Diagnosis Comments US ARTHROCENTESIS ASP INJ JOINT MAJOR RIGHT Routine 08/09/2024 10:38 AM EDT Adhesive capsulitis of left shoulder OK ARTHROCENTESIS/ASPIRATI ON/INJECTION MAJOR JOINT/BURSA W/O U/S GUIDANCE Routine 08/09/2024 10:30 AM EDT Adhesive capsulitis of left shoulder LIPID PANEL Routine 11/14/2023 HM DEPRESSION SCREENING Routine 08/12/2023 COLONOSCOPY Routine 02/01/2023 HEPATITIS C SCREENING Routine 04/25/2020 from Last 3 Months or Most Recently Relevant to Health Maintenance Results * US Arthrocentesis Asp Inj Joint Major Right (08/09/2024 10:38 AM EDT) Anatomical Region Laterality Modality Extremity Right Ultrasound Narrative 08/10/2024 2:55 PM EDT PROCEDURE Left glenohumeral injection fo adhesive capsulitis risk including infection, post-injection steriod flare, hypopigmentation, neurovascular injury and fat atrophy, were thoroughly discussed with the patient. The patients understood the risks and gave verbal consent for the procedure. The posteriorlateral shoulder was prepped with Chloro-prep after anatomical landmarks where palpated and visualized with ultrasound. Ethyle chloride was used as to topical anesthetic. Then using a 23-gauge 3-1/2 inch needle lidocaine 2 mL was used as a local anesthetic. Kenalog 40 mg and lidocaine 3 cc were injected into the joint using sterile technique under ultrasound guidance without complications. The patient tolerated the procedure well. Aftercare was thoroughly discussed with the patient. Images were recorded and will permanently stored in patients medical record. us Nuria Beltrán MD IMG US PROCEDURES Final Result * OK ARTHROCENTESIS/ASPIRATION/INJECTION MAJOR JOINT/BURSA W/O U/S GUIDANCE (08/09/2024 10:30 AM EDT) Narrative Nuria Beltrán MD - 08/09/2024 10:30 AM EDT Nuria Beltrán MD 08/10/2024 2:55 PM L Inj/Asp: L glenohumeral Indications: pain Details: 22 G needle, posterior approach (guidance: US guided) Medications: 3 mL lidocaine 1 %; 40 mg triamcinolone acetonide 40 mg/mL Outcome: tolerated well, no immediate complications Informed Consent: Laterality: Left Relevant images/test results available and reviewed: yes Health status cleared: Yes Procedure/treatment, purpose, treatment alternatives, risks/potential complications and benefits explained: yes Risk/complications/benefits details: This include bleeding, infection, increase in pain Patient questions answered: yes Patient agrees, verbalizes understanding, and wants to proceed: yes Consent given by: Patient Informed consent discussion completed by Physician/JERMAINE with patient: Verbal Pre-procedure timeout performed: yes us Nuria Beltrán MD IN CLINIC/BEDSIDE ORDERABLES F inal Result * (ABNORMAL) Lipid panel (11/14/2023) LDL/HDL Ratio 3 0 - 4 Triglycerides 100 0 - 150 mg/dL Cholesterol 186 0 - 200 mg/dL HDL 64 >=40 mg/dL LDL Cholesterol 102(A) 0 - 100 mg/dL Blood Venous blood specimen / Unknown [facility] Provider LAB BLOOD ORDERABLES Kendra l Result * Depression Screening (08/12/2023) Pathologist [facility] Depression Screening Abstracted [facility] Provider HEALTH MAINTENANCE Final Result * Colonoscopy (02/01/2023) [facility] Colonoscopy Normal, Abstracted Anatomical Region Laterality Modality Other [facility] Provider HEALTH MAINTENANCE Final Result * Hepatitis C Screening (04/25/2020) Pathologist [facility] Hepatitis C Screening Abstracted [facility] Provider HEALTH MAINTENANCE Final Result from Last 3 Months or Most Recently Relevant to Health Maintenance Insurance [facility] Advance Directives Documents on File Type Date Recorded Patient Flight Steward 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
--- OUTSIDE RECORDS SUMMARY | 2024-09-27 12:59 | XMS_ITS | Clinical Summary ---
Author Organization [facility] Address [address] 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 0 Active sertraline (Zoloft) 25 MG tablet Take 25 mg by mouth Once per day. 0 Active Polyethylene Glycol 3350 (PEG 3350) 17 GM/SCOOP powder MIX 17 GRAMS WITH WATER AND DRINK ONCE DAILY FOR 7 DAYS. 5 Active pantoprazole (ProtoNix) 40 MG EC tablet TAKE 1 TABLET BY MOUTH EVERY MORNING ON EMPTY STOMACH. WAIT 30 MINS THEN EAT TO ACTIVATE MEDICATION Active melatonin 3 MG tablet Take 3 mg by mouth at bedtime. 5 Active ibuprofen 600 MG tablet Take 600 mg by mouth if needed in the morning, at noon, and at bedtime. Active gabapentin (Neurontin) 300 MG capsule TAKE 1 CAPSULE BY MOUTH ONCE A DAY X3 DAYS, THEN TWICE A DAY X3 DAYS, THEN 3 TIMES A DAY Active aspirin 325 MG tablet Take 325 mg by mouth Once per day. Active Ventolin HFA 108 (90 Base) MCG/ACT inhaler INHALE 2 PUFFS INTO LUNGS 4 (FOUR) TIMES A DAY. Active Active Problems Problem Noted Date Diagnosed Date Bacteremia due to Staphylococcus aureus 09/14/19 Disorder of bone and articular cartilage 025 Empyema 09/13/2024 Gastroesophageal reflux disease 09/13/2024 Multiple fractures of ribs 09/13/2024 Postoperative back pain 09/13/2024 Scoliosis 09/13/2024 Superficial vein thrombosis 09/13/2024 Traumatic hemopneumothorax 09/13/2024 Underweight 09/13/2024 Pulmonary embolism without acute cor pulmonale 0 07/31/2024 Overview (09/13/2024): Is a dental finding during hospitalization for traumatic rib fracture July 16, 2024 Substance use 08/12/2023 Overview (09/13/2024): see note 06/10/23, fentanyl/heroin, see note 08/12/23 Chronic bilateral low back pain 03/03/2021 Overview (09/13/2024): Last Assessment & Plan: Patient is 1 [...] of left ankle 11/06/2020 Moderate episode of recurrent major depressive d isorder 11/06/2020 Elevated ferritin 04/22/2020 Overview (09/13/2024): 04/13/2020: Seen by Dr. Shepherd. ? 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 01/30/2020 Current mild episode of major depressive disorde r 05/30/2018 Insomnia 05/30/2018 Gastroesophageal reflux disease without esophagi tis 05/29/2015 Harmful use of alcohol 05/29/2015 Tobacco use disorder 05/29/2015 Fx scapul, acrom proc-closed 04/24/2010 Encounters Date Type Department Care Team Description 09/13/2024 11:00 AM EDT Office Visit [facility] [address] [place] [address] Devan Snyder DMD from Last 3 Months Social History Tobacco Use Types Packs/Day Years Used Date Smoking Tobacco: Every Day Cigarettes Smokeless Tobacco: Current Tobacco Cessation:Ready to Q uit: Not Asked; Counseling Given: Not Answered Sex and Gender Information Value Date Recorded Sex Assigned at Male 08/22/2024 9:20 AM EDT Legal Sex Male 9:18 AM EDT Gender Identity Male 08/22/2024 9:20 AM EDT Sexual Orientation Choose not to disclose 2024 9:24 AM EDT Plan of Treatment Upcoming Encounters Date Type Department Care Team (Late st Contact Info) Description 10/03/2024 11:00 AM EDT Office Visit [facility] [address] [place] [address] Devan Snyder DMD [address] [place] [address] Health Maintenance Due Date Last Done Comments CT Colonography 1964 Colonoscopy 1964 Colorectal Cancer Screening 1964 Dental Prophylaxis 1964 Dental X-Ray: Bitewings 1964 Depression Screening 1964 FIT DNA/Cologuard 1964 FIT 1964 FOBT 1964 HIV Screening 1964 Lipid Panel 1964 SDOH Screening 1964 Sigmoidoscopy 1964 Disability Screening 1964 Alcohol/Substance Use Screening 1976 Hepatitis C Screening 1982 Hepatitis B Vaccines (1 of 3 - 19+ 3-dose series) 12/22/1983 Pneumococcal Vaccine: 50+ Years (1 of 2 - PCV) 12/22/1983 Zoster Vaccines (1 of 2) 2014 COVID-19 Vaccine (3 - 2023-2 5 season) 2023 12/11/2020, 10/30/2020 Influenza Vaccine (#1) 2024 , 05/06/2024 Dental Oral Exam 03/16/2025 09/13/2024 Tobacco Screening 09/13/2025 09/13/2024 Dental X-Ray: Full Mouth 09/15/2027 09/13/2024 DTaP/Tdap/Td Vaccines (3 - T d or Tdap) 04/06/2029 04/06/2019, 05/21/2010 RSV Patients and Patients Aged 60 years or older (1 - 1-dose 75+ series) 12/22/2039 HIB Vaccines Aged Out No longer eligi ble based on patient's age to complete this topic HPV Vaccines Aged Out No longer eligi ble based on patient's age to complete this topic Hepatitis A Vaccines Aged Out No long er eligible based on patient's age to complete this topic IPV Vaccines Aged Out No longer eligi ble based on patient's age to complete this topic Meningococcal B Vaccine Aged Out No l onger eligible based on patient's age to complete this topic Meningococcal Vaccine Aged Out No adarsh fern eligible based on patient's age to complete this topic RSV under 20 months Aged Out No longe r eligible based on patient's age to complete this topic Rotavirus Vaccines Aged Out No longer eligible based on patient's age to complete this topic Procedures Procedure Name Priority Date/Time Associated Diagnosis Comments CASE PRESENTATION, DETAILED AND EXTENSIVE TREATMENT PLANNING Routine 09/13/2024 11:00 AM EDT PANORAMIC RADIOGRAPHIC IMAGE Routine 09/13/2024 11:00 AM EDT PERIODIC ORAL EVALUATION - ESTABLISHED PATIENT Routine 09/13/2024 11:00 AM EDT from Last 3 Months Insurance [facility] [employer] ST[place] AD[place]
--- OUTSIDE RECORDS SUMMARY | 2024-09-27 12:59 | XMS_ITS | Clinical Summary ---
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 Name Role Phone Jnany Kitchen MD Primary Care Provider [phone] Allergies No known active allergies Medications Medication [...] 98 02/22/2023 2:43 PM EST Temperature 36.8 C (98.2 F) 02/22/2023 2:43 PM EST Respiratory Rate 16 06/12/2020 10:45 AM EDT [...] o f 2) 2014 Influenza Vaccine (#1) 2024 DTap / Tdap / Td (3 - Td or Tdap) 04/06/2029 04/06/2019, 05/21/2010 RSV Ped < 20 months Aged Out No longe r eligible based on patient's age to complete this topic Medical Devices Implanted Type Area Heel Seat Pounder Device Identifier Shelf Expiration Date Model / Serial / Lot Bonewax 2.5 Implanted:Qty: 1 on 06/12/2020 by Chris Hayden MD at [facility] and [facility] Right: Clavicle 11/18/2024 / / [id number] Care Teams Restaurant And Bar Manager Relationship Specialty Start Date End Date Janny Kitchen MD PCP - General Internal Medicine 10/09/21
[2024-09-27 13:01] VITALS: BP 102/83; PULSE 76; RESP 18; O2SAT 95; BMI 21.4
--- NOTE | 2024-09-27 13:01 | MHC.OFFVIS ---
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 He reports his pain is very severe 10/28. He relates his pain to the OLIF surgery he had [address] Lombardi. Apparently according to the patient the sacral screws are loose and needs to be removed. He reports pain intermittent and sharp. He had physical therapy after surgery and physical therapy did not help his pain. Because of his pain he can not sleep normally can not do activities of daily living can not take care of himself can not function normally. He is on permanent disability. He had x-rays available in the chart demonstrating hardware at the L3-L4 L5 and S1 lumbar vertebra. His past medical history significant for acid reflux memory loss history of pulmonary embolism history of rib fractures and history of COPD. Past surgical history significant for lumbar surgery as above and several ankle surgeries for the fractures. He admits smoking cigarettes half a pack per day for 30 years. Twenty beers a week and 5-6 hard liquor shots he consumes a week. He smokes cannabis 2 joints a week he drinks coffee and soda, he has 4 L of soda for a week. [facility] Medical History (Updated 09/27/24 @ 13:38 by Mayur Jones MD) Pulmonary embolism Elevated ferritin Depression Insomnia History of home oxygen therapy Hx of transfusion of packed red blood cells Rib fractures Multiple falls Substance abuse Alcohol liver damage Alcohol use disorder Wears dentures Anxiety History of ETOH abuse Smoker SOB (shortness of breath) Scoliosis GERD (gastroesophageal reflux disease) Surgical History (Updated 07/26/24 @ 09:56 by Nora Ortiz RN) Hx of chest tube placement Hx of arthroscopy of right knee Hx of shoulder surgery Hx of hand surgery History of surgery on lower extremity History of foot surgery (~2022) History of lumbar spinal fusion (~06/2021) Social History (Updated 11/03/23 @ 12:55 by Kate Marie RN) Housing Other:: trailer Are you a primary ambulatory care nurse to a significant other at home: No Do you presently have visiting nurse or other home services: No Patient Tobacco Use Status: Current everyday Tobacco user Tobacco use type: Cigarette Cigarette Packs Per Day: 1 Cigarettes Per Day: 20.0 Years Smoked: 40 Second Hand Smoke Exposure: No Substance Use Type: Marijuana Review of Systems Const All systems reviewed & are unremarkable except as noted in HPI and below ENT Reports Normal hearing present Neuro Reports Normal hearing present, Denies Abnormal speech present, Denies confusion and Denies Sensory deficit (Neuro) Psych Denies confusion Physical Exam Vital Signs: Last Vital Signs Pulse 76 09/27/24 13:01 Resp 18 09/27/24 13:01 BP 102/83 09/27/24 13:01 Pulse Ox 95 09/27/24 13:01 Oxygen Delivery Method Room Air 09/27/24 13:01 BMI result Body Mass Index 21.4 Const General: no acute distress; No confusion Orientation/consciousness: patient oriented x3 and No confusion Eyes General: appearance normal, both eyes and all related structures Pupils: Equal, round and reactive pupils present EOM: EOMs intact bilaterally Neck Neck: Yes full ROM Chest Chest palpation & inspection: normal inspection of the chest Resp Effort & Inspection: normal respiratory effort, able to speak in complete sentences, normal respiratory pattern, no audible wheezes and no cough Cardio Jugular venous distension: no JVD GI Inspection: Yes normal to inspection Back/Spine/Pelvis Other: On inspection there are several scars paraspinal spinal region of the lumbar spine delineating previous OLIF. The scars very well-healed, there is no redness no swelling no pathological discharge. Neuro General: patient oriented x3, gait normal and No confusion Cranial nerves: Yes CN's II-XII intact bilaterally, Yes Equal, round and reactive pupils present, Yes Normal hearing present and Yes Ability to bilaterally elevate shoulders present Speech: No Abnormal speech present Gait exam (Neuro): Normal gait present Motor exam (neuro): 5/5 motor strength present throughout Sensory Exam: No Sensory deficit (Neuro) Extrem General: No pedal edema Psych Speech and movement: Normal speech and movement present Affect: normal affect Attitude: cooperative Thought process: Normal thought process present Thought content: Normal thought content present Insight: Good insight present (Psych) Judgement: Good judgement present (Psych) Assessment & Plan Assessment & Plan (1) Postlaminectomy syndrome: Code(s): M96.1 - Postlaminectomy syndrome, not elsewhere classified Category: Medical (2) Chronic pain syndrome: Code(s): G89.4 - Chronic pain syndrome Category: Medical Plan Removal of the loose screws from the patient's lower back seem to be only way to help his pain. He was admitted for the procedure however he was found intoxicated with cocaine and the procedure was canceled. He needs to be scheduled for the procedure again. Provided he will not be able to for surgery because of his pulmonary condition severe COPD and/or need for blood thinners I will order this patient to go for the custom torso bracing. That should decrease the level of his pain. He will be impossible candidate for any opioid administration because of the signs of the cocaine addiction, alcohol addiction and cannabis addiction. Coding Level of Care Code New Pt Level 3 (29434) Diagnoses Postlaminectomy syndrome M96.1 Chronic pain syndrome G89.4
== END 2024-09-27 13:46 | disposition home or self-care (01) ==
LOC: HO.PMC 12:54
PROVIDERS: PCP Internal Medicine; Referring Provider Internal Medicine; Visit Provider Anesthesiology
DX: M96.1 Postlaminectomy syndrome, not elsewhere classified (principal); G89.4 Chronic pain syndrome
CPT/HCPCS: 99203

== ENCOUNTER → 2024-09-27 12:53 | Outpatient (BNVA) | payer OTHER, SELFPAY | PROVIDERS: PCP Internal Medicine; Referring Provider Internal Medicine; Visit Provider Anesthesiology | DX: M96.1 Postlaminectomy syndrome, not elsewhere classified (principal); G89.4 Chronic pain syndrome | CPT/HCPCS: 99202 ==